=== PATIENT | female | born 1985 | race Caucasian/White ===

== ENCOUNTER → 2017-12-14 12:14 | Outpatient (CLI) | payer OTHER, MEDICAID, SELFPAY | PROVIDERS: Family Provider Family Medicine; Visit Provider Physician Assistant | DX: M54.5 Low back pain (principal) | CPT/HCPCS: 87086 ==

== ENCOUNTER 2019-01-07 14:55 | Emergency (ER) | payer BC, SELFPAY ==
[2019-01-07 15:13] VITALS: BP 103/63; PULSE 60; RESP 20; TEMP 37.3; O2SAT 99; BMI 24.7
--- NOTE | 2019-01-07 15:38 | ED.HA ---
HPI - Headache General Chief Complaint: Headache Stated Complaint: Bad headache, dizzy, couldn't walk, nausea Time Seen by Provider: 01/07/19 15:21 Source: patient Mode of arrival: ambulatory Limitations: no limitations History of Present Illness HPI Narrative: Patient is a 33-year-old female who presents from the walk-in clinic with headache dizziness. She says that she had quite a severe headache 2 nights ago actually caused her to vomit profusely somewhat show that she has subconjunctival hemorrhages in her eyes. She says the headache has slowly gotten better however the dizziness has persisted. His she says that she is actually dizzy often but seems to be little bit worse now. She denies chest pain or heart palpitations. No abdominal pain no weakness numbness tingling or changes in vision. Patient says her dizziness is definitely worse with movement. This been ongoing for about 1 month. Related Data Previous Rx's Medication Instructions Recorded nitrofurantoin monohyd/m-cryst 100 mg PO BID #10 cap 07/31/17 [Macrobid] phenazopyridine [Pyridium] 200 mg PO TID #6 tab 07/31/17 meclizine 25 mg PO TID PRN #10 tab 01/07/19 ondansetron 4 mg PO Q8H PRN #10 tab 01/07/19 Allergies Allergy/AdvReac Type Severity Reaction Status Date / Time No Known Drug Allergies Allergy Verified 01/07/19 15:12 Review of Systems Review of Systems ROS Unobtainable: All systems reviewed & are unremarkable except as noted in HPI and below Constitutional Denies chills, Denies fever(s), Denies lethargy and Denies weakness Cardiovascular Denies chest pain, Denies diaphoresis, Denies syncope, Reports lightheadedness, Denies dyspnea and Denies dyspnea on exertion Respiratory Denies cough, Denies dyspnea, Denies dyspnea on exertion and Denies wheezing Gastrointestinal Gastrointestinal: Reports as per HPI, Denies diarrhea, Reports nausea and Reports vomiting Genitourinary Denies hematuria, Denies flank pain, Denies urinary incontinence and Denies urinary urgency Musculoskeletal Denies back pain, Denies muscle weakness, Denies numbness and Denies tingling Integumentary/Breasts Denies pruritus, Denies erythema, Denies rash and Denies wounds Neurologic Denies syncope, Denies numbness, Denies tingling and Denies weakness Allergic/Immunologic Denies wheezing [facility] Medical History Dizzy (Acute) Family History (Updated 06/29/16 @ 00:00 by Conversion Provider) Father Hypertension Grandfather Cancer Sister Age: 33 Lyme disease Social History Smoking Status: Current some day smoker Family History Father Hypertension Grandfather Cancer Sister Age: 33 Lyme disease Social History Smoking Status: Current some day smoker Exam Initial Vital Signs Initial Vital Signs: Vital Signs Temperature 99.2 F 01/07/19 15:13 Pulse Rate 60 01/07/19 15:13 Respiratory Rate 20 01/07/19 15:13 Blood Pressure 103/63 01/07/19 15:13 Pulse Oximetry 99 01/07/19 15:13 GENERAL: Well-appearing, well-nourished and in no acute distress. HEENT: Head atraumatic,EOMI, pupils reactive, face symmetric, moist mucous membranes CARDIOVASCULAR: Regular rate and rhythm without murmurs, rubs or gallops. RESPIRATORY: Breath sounds equal bilaterally, no wheezes rales or rhonchi. ABDOMEN: Soft, nontender. Normoactive bowel sounds all 4 quadrants. No guarding or rebound. EXTREMITIES: Normal range of motion, no clubbing or edema. Neurovascularly intact NEUROLOGICAL: Alert and oriented x4.Normal gait and speech. Cranial nerves II through XII grossly intact. Alignment Mechanic strength equal bilaterally, lower extremity strength SKIN: Warm, dry, no laceration, no petechiae, no rashes or lesions. Scores NIH Stroke Scale Level of Conciousness: Alert, keenly responsive Ask month/age: Answers both questions correctly. Open/close eyes, close hand: Performs both tasks correctly Best gaze horizontal: Normal Visual bautista: No visual loss Facial palsy: Normal symetrical movement Left arm drift: No drift for full 10 sec Right arm drift: No drift for full 10 sec Left leg drift: No drift for full 10 sec Right leg drift: No drift for full 10 sec Limb ataxia: Absent Sensory on face/arms/legs: Normal, no sensory loss Best language: No aphasia, normal Dysarthria: Normal Extinction or inattention: No abnormality Total NIH Stroke scale score: 0 Course Orders Ordered: ED Orders 01/07/19 15:39 CT head/brain wo con Stat 01/07/19 15:45 EKG-12 Lead Stat 01/07/19 16:19 Basic Metabolic Panel Stat Complete Blood Count AUTO DIFF Stat Discontinued Medications Sodium Chloride (Normal Saline 0.9%) 1,000 mls @ 1,000 mls/hr IV CONT CRISTAL Last Infusion: 01/07/19 17:12 Dose: 0 mls/hr Admin: 01/07/19 16:09 Dose: 1,000 mls/hr Meclizine HCl (Antivert) 25 mg PO NOW ONE Stop: 01/07/19 15:39 Last Admin: 01/07/19 16:09 Dose: 25 mg Ondansetron HCl (Zofran) 4 mg IV NOW ONE Stop: 01/07/19 15:39 Last Admin: 01/07/19 16:09 Dose: 4 mg Vital Signs - 8 hr 01/07/19 15:13 01/07/19 16:53 Temperature 99.2 F Pulse Rate 60 48 L Respiratory Rate 20 23 Blood Pressure 103/63 Blood Pressure [Right Arm] 97/59 L Pulse Oximetry 99 100 MDM - Headache Lab Data Attestation: I reviewed the patient's lab results. Result diagrams: 01/07/19 16:19 01/07/19 16:19 Lab Results 01/07/19 01/07/19 Range/Units 16:19 16:19 WBC 6.6 (4.5-11.0) X10^3/uL RBC 4.13 (4.0-5.2) X10^6/uL Hgb 13.6 (12.0-16.0) g/dL Hct 39.1 (36-46) % MCV 94.6 (80-100) fL MCH 33.0 (26-34) PG MCHC 34.9 (30-36) % RDW 12.9 (11.6-14.8) % Plt Count 176 (150-400) X10^3/uL Neut % (Auto) 62.7 (50-75) % Lymph % (Auto) 26.7 (25-40) % Shackelford % (Auto) 8.0 (3-14) % Eos % (Auto) 1.8 L (2-4) % Baso % (Auto) 0.8 (0-2) % Neut # (Auto) 4100 (1653-0569) /uL Lymph # (Auto) 1800 (9144-0768) /uL [place]ord # (Auto) 500 (0-900) /uL Eos # (Auto) 100 (0-450) /uL Baso # (Auto) 100 (0-100) /uL Sodium 138 (137-145) mmol/L Potassium 5.1 (3.4-5.1) mmol/L Chloride 105 (98-107) mmol/L Carbon Dioxide 28 (22-32) mmol/L BUN 15 (7-17) mg/dL Creatinine 0.60 (0.52-1.04) mg/dL Estimated GFR > 60.0 (>60) mL/min BUN/Creatinine Ratio 25.0 H (6-22) Glucose 82 (70-100) mg/dL Calcium 8.9 (8.4-10.2) mg/dL Point of Care Testing Test Results Negative Urine Dip Bedside Urine Glucose Negative Bedside Urine Bilirubin - Negative Bedside Urine Ketone - Negative Urine Specific [place] 1.025 Bedside Urine Occult Blood +/- Bedside Urine pH 6.0 Bedside Urine Protein - Negative Bedside Urine Urobilinogen - Negative Bedside Urine Nitrite - Negative Bedside Urine Leukocytes - Negative Esterase Imaging Data CT scan - head: Radiologist's impression: PROCEDURE: CT HEAD/BRAIN WO CON INDICATIONS: sudden onset severe headache 2 days ago with vomiting TECHNIQUE: Noncontrast 4.5 mm thick angled axial sections acquired from the foramen magnum to the vertex, with coronal and sagittal reformats. For radiation dose reduction, the following was used: automated exposure control, adjustment of mA and/or kV according to patient size. COMPARISON: None. FINDINGS: Image quality: Diagnostic. CSF spaces: Basal cisterns are patent. No extra-axial fluid collections. Ventricles are normal in size and shape. Brain: No midline shift. No intracranial masses or hemorrhage. Cisneros-white matter interface is normal. Skull and face: Calvarium and visualized facial bones are intact, without suspicious lesions. Sinuses: Visualized sinuses and mastoids are clear. IMPRESSION: Unremarkable head CT. No acute intracranial hemorrhage. Dictated by: Magen Caruso M.D. on 01/07/2019 at 15:28 Approved by: Magen Caruso M.D. on 01/07/2019 at 15:29 ECG Data Attestation: I personally reviewed and interpreted this ECG as follows: Prior ECG tracings: not available for review Interpretation: Normal sinus rhythm rate [address] changes no T-wave inversions p.r. intervalRS 89 QTC 390 MDM Narrative Medical decision making narrative: Patient overall is feeling significantly better after meclizine. Head CT is negative she has no focal deficits. Dizziness is consistent with benign positional paroxysmal vertigo. Her headache has overall improved over last 2 days. No sign of subarachnoid hemorrhage or other bleeding on her head CT. At this time she feels ready and able to go home. Discharge Plan Departure Patient Disposition: Home Clinical Impression: Vertigo Headache Qualifiers: Headache type: unspecified Headache chronicity pattern: acute headache Intractability: not intractable Qualified Code(s): R51 - Headache Discharge Date/Time: 01/07/19 17:14 Interventions: ED Discharge Assessment Last Done: 01/07/19 17:13 Instructions: DI for Migraine, Benign Paroxysmal Positional Vertigo Activity Restrictions/Additional Instructions: *You have been diagnosed with vertigo and headache *What to do: Head CT is negative today blood work is reassuring. If you continue to have more frequent headaches as you did , it may benefit you to see a neurologist. *Continue to take medications as directed--> [facility] Zofran 4 mg every 8 hours if needed for nausea vomiting Meclizine 25 mg every 8 hours if needed for dizziness *Follow up with your primary care provider in 2-3 days *Return to ER if you should have persistent dizziness worsening headache persistent vomiting weakness numbness tingling or any new, worsening or concerning symptoms Prescriptions: New meclizine 25 mg tablet 25 mg PO TID PRN (Reason: dizziness) Qty: 10 RF: 0 ondansetron 4 mg tablet,disintegrating 4 mg PO Q8H PRN (Reason: nausea and vomiting) Qty: 10 RF: 0 No Action phenazopyridine [Pyridium] 200 MG tablet 200 mg PO TID Qty: 6 RF: 0 nitrofurantoin monohyd/m-cryst [Macrobid] 100 MG capsule 100 mg PO BID Qty: 10 RF: 0 Referrals: [facility] [Outside]
[2019-01-07] MEDS: MECLIZINE HCL 12.5 MG TABLET 25 MG PO (16:09)
[2019-01-07] MEDS: SODIUM CHLORIDE 0.9% 1,000 ML 1000 ML IV (16:09)
[2019-01-07] MEDS: ONDANSETRON 4 MG/2 ML INJ IV (16:09)
[2019-01-07 16:29] LABS: Add Manual Diff / Slide Review NO; Basophils Absolute Auto 100 /uL (0-100); Basophils Percent Auto 0.8 % (0-2); Eosinophils Absolute Auto 100 /uL (0-450); Eosinophils Percent Auto 1.8 % (2-4); Hematocrit 39.1 % (36-46); Hemoglobin 13.6 g/dL (12.0-16.0); Lymphocytes Absolute Auto 1800 /uL (1100-4500); Lymphocytes Percent Auto 26.7 % (25-40); Mean Corpuscular HGB Conc 34.9 % (30-36); Mean Corpuscular Volume 94.6 fL (80-100); Monocytes Absolute Auto 500 /uL (0-900); Neutrophils Absolute Auto 4100 /uL (1500-7000); Neutrophils Percent Auto 62.7 % (50-75); Platelet Count 176 X10^3/uL (150-400); Red Blood Cell Count 4.13 X10^6/uL (4.0-5.2); Red Cell Distribution Width 12.9 % (11.6-14.8); White Blood Cell Count 6.6 X10^3/uL (4.5-11.0)
[2019-01-07 16:41] LABS: Blood Urea Nitrogen 15 mg/dL (7-17); Calcium 8.9 mg/dL (8.4-10.2); Carbon Dioxide 28 mmol/L (22-32); Chloride 105 mmol/L (98-107); Estimated Glomerular Filt Rate > 60.0 mL/min (>60); Glucose 82 mg/dL (70-100); Potassium 5.1 mmol/L (3.4-5.1); Sodium 138 mmol/L (137-145)
[2019-01-07 16:47] LABS: HEMOLYSIS 209 (0-50)
[2019-01-07 16:53] VITALS: BP 97/59; PULSE 48; RESP 23; O2SAT 100
== END 2019-01-07 17:14 | disposition home or self-care (01) ==
PROVIDERS: Emergency Provider Emergency Medicine; Family Provider Family Medicine
DX: R42 Dizziness and giddiness (principal); R51 Headache
CPT/HCPCS: 36591; 70450; 80048; 81003; 81025; 85025; 93005; 96361; 96374; 99283; 99285; J2405

== ENCOUNTER 2020-01-03 08:25 | Emergency (ER) | payer OTHER, SELFPAY ==
[2020-01-03 08:39] VITALS: BP 136/92; PULSE 66; RESP 18; TEMP 37; O2SAT 99
--- NOTE | 2020-01-03 09:30 | ED_ITS ---
HPI - Anxiety General Chief Complaint: Anxiety Stated Complaint: Panic Attack x2 days Time Seen by Provider: 01/03/20 08:58 Source: patient Mode of arrival: Wheelchair History of Present Illness HPI narrative: Patient was dropped off by her here. Patient has been under lot of stress. Her 12-year-old daughter was seen here for suicide ideations. She had to drive her daughter to [facility] for inpatient placement last night. She dropped her off at 12:30 a.m. today. On her return back home here patient had anxiety attack panic attack then had a stop at a hotel to try to sleep. Patient states has history anxiety with panic attacks but this is by far the most stressful event in her life. had to come to her and pick her up and upper back here. In [place]. Patient unable sleep for the past few nights due to stress. Denies any hallucinations no SI or HI. Is not on any medications for anxiety. Denies does not want test. Has had hyperventilating and very tearful and emotional. Related Data Previous Rx's Medication Instructions Recorded nitrofurantoin monohyd/m-cryst 100 mg PO BID #10 cap 07/31/17 [Macrobid] phenazopyridine [Pyridium] 200 mg PO TID #6 tab 07/31/17 meclizine 25 mg PO TID PRN #10 tab 01/07/19 ondansetron 4 mg PO Q8H PRN #10 tab 01/07/19 hydroxyzine HCl 25 mg PO TID PRN #20 tab 01/03/20 Allergies Allergy/AdvReac Type Severity Reaction Status Date / Time No Known Drug Allergies Allergy Verified 01/07/19 15:12 Review of Systems Review of Systems Narrative: GENERAL: Denies chills, fatigue, malaise, fever, sweats. HEENT: Denies sinus pain, ear pain, sore throat, difficulty swallowing, dizziness. RESPIRATORY: Denies dyspnea, cough, wheezing, hemoptysis, sputum. CARDIOVASCULAR: Denies chest pain, palpitations, orthopnea, edema, GASTROINTESTINAL: Denies nausea, vomiting, abdominal pain, diarrhea, constipation, melena. : Denies dysuria, frequency, incontinence, hematuria, urinary retention. MUSCULOSKELETAL: denies weakness, joint pain, or bony pain SKIN: Denies rash, skin lesions, or other NEUROLOGIC: Denies weakness, headache, numbness, change in speech, confusion, seizures, incoordination. PSYCHIATRIC: Very anxious, no SI or HI, no auditory or visual hallucinations. ROS Unobtainable: All systems reviewed & are unremarkable except as noted in HPI and below Patient History Medical History Dizzy (Acute) Family History Father Hypertension Grandfather Cancer Sister Age: 34 Lyme disease Social History Smoking Status: Current some day smoker Smoking Status: Current some day smoker alcohol intake frequency: 0-2 drinks per day Substance Use Type: does not use Exam Narrative Exam Narrative: GENERAL: patient appears stated age. Well-nourished, well- developed patient, in no distress, not toxic HEAD: Atraumatic. Normocephalic. NECK: Trachea midline. Non tender CARDIOVASCULAR: Regular rate and rhythm without murmurs, gallops, or rubs. RESPIRATORY: Clear to auscultation. Breath sounds equal bilaterally. No wheezes, rales, or rhonchi. GASTROINTESTINAL: Abdomen soft, non-tender, nondistended. NEURO: AOx3. SKIN: No rash or erythema of visible areas PSYCH: Patient is tearful/anxious, not hyperventilating. is calm otherwise. Cooperative. No SI or HI. No hallucinations. Initial Vital Signs Initial Vital Signs: Vital Signs Temperature 98.6 F 01/03/20 08:39 Pulse Rate 66 01/03/20 08:39 Respiratory Rate 18 01/03/20 08:39 Blood Pressure 136/92 H 01/03/20 08:39 Pulse Oximetry 99 01/03/20 08:39 Course Orders Ordered: Discontinued Medications Alprazolam (Xanax) 0.5 mg PO NOW ONE Stop: 01/03/20 09:22 Last Admin: 01/03/20 10:05 Dose: Not Given Documented by: YUNOIR Alprazolam (Xanax) 0.25 mg PO NOW ONE Stop: 01/03/20 10:05 Last Admin: 01/03/20 10:07 Dose: 0.25 mg Documented by: YUNIOR Alprazolam (Xanax) 0.25 mg PO NOW ONE Stop: 01/03/20 10:11 Last Admin: 01/03/20 10:40 Dose: 0.25 mg Documented by: YUNIOR Ondansetron HCl (Zofran Odt) 4 mg SL NOW ONE Stop: 01/03/20 09:22 Last Admin: 01/03/20 09:51 Dose: 4 mg Documented by: YUNIOR Reevaluation(s) Reevaluation #1: Patient tolerating by mouth/drinking. No distress. Feeling better. Less anxious, patient is smiling now. She desires discharge home Time: 10:54 Vital Signs Vital signs: Vital Signs - 8 hr 01/03/20 10:57 Pulse Rate 70 Respiratory Rate 14 Blood Pressure 107/70 Pulse Oximetry 99 MDM - Anxiety Differential Diagnosis Differential diagnosis: Likely acute anxiety MDM Narrative Medical decision making narrative: No labs indicate this time. No EKG imaging indicated. Patient states this is more severe form of her anxiety due to recent stress of her family. Discharge Plan Departure Patient Disposition: Home Clinical Impression: Acute anxiety Discharge Date/Time: 01/03/20 11:09 Instructions: Insomnia (Alternative Therapy), Anxiety and Panic Attacks (Alternative Therapy), Treating Insomnia: A Look at Some Treatment Options, Yoga May Help Reduce Anxiety and Stress, Mindful Meditation May Reduce Symptoms and Complications of Insomnia Activity Restrictions/Additional Instructions: No driving today. See family doctor or call provided clinic list to obtain a family physician and for possible counseling/therapy for anxiety and stress in her life. Return if worse or if any questions or concerns. Prescriptions: New hydroxyzine HCl 25 mg tablet 25 mg PO TID PRN (Reason: anxiety) Qty: 20 RF: 0 No Action phenazopyridine [Pyridium] 200 MG tablet 200 mg PO TID Qty: 6 RF: 0 nitrofurantoin monohyd/m-cryst [Macrobid] 100 MG capsule 100 mg PO BID Qty: 10 RF: 0 meclizine 25 mg tablet 25 mg PO TID PRN (Reason: dizziness) Qty: 10 RF: 0 ondansetron 4 mg tablet,disintegrating 4 mg PO Q8H PRN (Reason: nausea and vomiting) Qty: 10 RF: 0
[2020-01-03] MEDS: ONDANSETRON 4 MG ODT SL (09:51)
[2020-01-03] MEDS: ALPRAZolam 0.25 MG TABLET PO ×2 (10:07→10:40)
[2020-01-03 10:57] VITALS: BP 107/70; PULSE 70; RESP 14; O2SAT 99
== END 2020-01-03 11:09 | disposition home or self-care (01) ==
PROVIDERS: Emergency Provider Emergency Medicine; Family Provider Family Medicine
DX: F41.9 Anxiety disorder, unspecified (principal)
CPT/HCPCS: 99283

== ENCOUNTER 2020-01-04 08:34 | Emergency (ER) | payer OTHER, SELFPAY ==
[2020-01-04] VITALS (7 sets, daily range): BP systolic 105–139; BP diastolic 60–83; PULSE 68–87; RESP 16; TEMP 37.1; O2SAT 96–100; BMI 22.9
--- NOTE | 2020-01-04 08:52 | ED_ITS ---
HPI - Pediatric SOB/Dyspnea General Chief Complaint: Anxiety Stated Complaint: anxiety Time Seen by Provider: 01/04/20 08:52 Source: patient Mode of arrival: Ambulatory Limitations: no limitations History of Present Illness HPI Narrative: The patient has a longstanding history of anxiety. In her youth she learn to do deep breathing exercises, other measures to alter the sensation. Her 12-year-old daughter was recently a patient in this ER, her daughter required psychiatric hospitalization. The patient chest spent 3 days in this ER with her daughter for evaluation and disposition. She then drove her daughter to [place], [place], 7 hours away for hospitalization. She describes that drive as the longest 7 hours of her life. She had to get a hotel half of the way back, she felt she could go no further. Her picked her up and brought her home. She was in this ER yesterday with anxiety. She was treated with Xanax in the ER then discharged on hydroxyzine. She returns crying, complaining of insomnia, and nausea. She has not vomited. She denies disability to eat to hydrate. The hydroxyzine did not work well for, she describes drowsiness yet the inability to sleep. She remains quite upset about her daughter. She has another child, and 8-year-old son who is well diet without issues at home. Her relationship with her is described as very good. She has no other current stressors. She has anxiety, depression, tearfulness, insomnia, appetite issues, and depression. She denies suicidal or homicidal ideation. She denies recent illness. She has had no fever, cough or dyspnea. Related Data Previous Rx's Medication Instructions Recorded nitrofurantoin monohyd/m-cryst 100 mg PO BID #10 cap 07/31/17 [Macrobid] phenazopyridine [Pyridium] 200 mg PO TID #6 tab 07/31/17 meclizine 25 mg PO TID PRN #10 tab 01/07/19 ondansetron 4 mg PO Q8H PRN #10 tab 01/07/19 hydroxyzine HCl 25 mg PO TID PRN #20 tab 01/03/20 lorazepam [Ativan] 0.5 mg PO Q6-8H PRN #14 tab 01/04/20 ondansetron 4 mg PO Q6-8H PRN #14 tab 01/04/20 sertraline [Zoloft] 50 mg PO Q24H #30 tab 01/04/20 Allergies Allergy/AdvReac Type Severity Reaction Status Date / Time No Known Drug Allergies Allergy Verified 01/07/19 15:12 Pediatric Review of Systems Limitations: All systems reviewed & are unremarkable except as noted in HPI and below Constitutional: Denies fever and chills Eyes: Denies change in vision ENT: Denies sore throat Cardiovascular: Denies chest pain, palpitations, syncope and dyspnea on exertion Respiratory: Denies cough and dyspnea Gastrointestinal: Reports abdominal pain and nausea; Denies vomiting and diarr hea Genitourinary: Denies dysuria Musculoskeletal: Denies back pain Integumentary: Denies rash and lesions Neurological: Denies headache and weakness Psychiatric: Reports change in energy level and other (See HPI.) Endocrine: Reports fatigue Allergic/Immunologic: Denies facial swelling Patient History Medical History (Updated 01/04/20 @ 15:24 by Mynor Perry MD) Anxiety (Acute) Dizzy (Acute) Surgical History (Updated 01/04/20 @ 11:06 by Mynor Perry MD) No history of previous surgery (Acute) Family History Father Hypertension Grandfather Cancer Sister Age: 34 Lyme disease Social History Smoking Status: Current some day smoker Smoking Status: Current some day smoker alcohol intake frequency: 0-2 drinks per day Substance Use Type: does not use Pediatric Exam Initial Vital Signs Initial Vital Signs: Vital Signs Temperature 98.7 F 01/04/20 08:54 Pulse Rate 87 01/04/20 08:54 Respiratory Rate 16 01/04/20 08:54 Blood Pressure 139/83 01/04/20 08:54 Pulse Oximetry 97 01/04/20 08:54 General Limitations: no limitations General appearance: other (She appears said, she is tearful.) Head Head exam: normocephalic and atraumatic ENT ENT exam: normal exam Neck Neck exam: Absent tenderness, lymphadenopathy and thyromegaly Chest Chest inspection: Present symmetric chest wall rise Respiratory Respiratory exam: Present normal lung sounds bilaterally Cardiovascular Cardiovascular exam: Present regular rate, normal rhythm and normal heart sounds Abdominal Exam Abdominal exam: Present soft and normal bowel sounds; Absent distention, tenderness, guarding and rebound Extremities Exam Extremities exam: Present normal inspection; Absent tenderness and pedal edema Back Exam Back exam: Absent CVA tenderness (R) Neurological Exam Neurological exam: Present alert and oriented X3; Absent motor sensory deficit Skin Skin exam: Present warm, dry and normal color; Absent rash Course Course Course Narrative: The patient was started on Ativan, as well as Zoloft. She has no primary care, or medical resources other than the ER at this time. Our ER social and political studies professor was consulted, he assisted in aligning resources for the patient. She is feeling much better after receiving the medications. She is referred to [facility] in [place]. Orders Ordered: ED Orders 01/04/20 10:57 Consult to ACADEMIC SERVICES COORDINATOR - Terminal Superintendent Stat 01/04/20 11:37 Urine Culture Stat Urine Microscopic Stat Discontinued Medications Sodium Chloride (Normal Saline 0.9%) 1,000 mls @ 1,000 mls/hr IV BOLUS ONE Stop: 01/04/20 10:58 Last Infusion: 01/04/20 11:15 Dose: 1,000 mls/hr Documented by: Admin: 01/04/20 10:10 Dose: 1,000 mls/hr Documented by: WICHO Lorazepam (Ativan) 0.5 mg PO NOW ONE Stop: 01/04/20 09:13 Last Admin: 01/04/20 09:20 Dose: 0.5 mg Documented by: WICHO Ondansetron HCl (Zofran Odt) 4 mg SL NOW ONE Stop: 01/04/20 09:13 Last Admin: 01/04/20 09:20 Dose: 4 mg Documented by: WICHO Ondansetron HCl (Zofran) 4 mg IV NOW ONE Stop: 01/04/20 10:00 Sertraline HCl (Zoloft) 50 mg PO NOW ONE Stop: 01/04/20 09:13 Last Admin: 01/04/20 09:44 Dose: 50 mg Documented by: WICHO Vital Signs Vital signs: Vital Signs - 8 hr 01/04/20 13:28 01/04/20 13:30 01/04/20 14:00 Pulse Rate 85 73 68 Blood Pressure 117/70 106/66 Pulse Oximetry 99 99 97 01/04/20 14:30 01/04/20 15:00 01/04/20 15:30 Pulse Rate 77 70 81 Blood Pressure 126/68 108/60 105/66 Pulse Oximetry 96 98 100 Medical Decision Making Lab Data Result diagrams: 01/04/20 09:58 01/04/20 09:58 Labs: Lab Results 01/04/20 01/04/20 01/04/20 Range/Units 09:58 09:58 11:37 WBC 7.4 (4.5-11.0) X10^3/uL RBC 4.62 (4.0-5.2) X10^6/uL Hgb 15.0 (12.0-16.0) g/dL Hct 43.0 (36-46) % MCV 93.1 (80-100) fL MCH 32.5 (26-34) PG MCHC 34.9 (30-36) % RDW 12.6 (11.6-14.8) % Plt Count 188 (150-400) X10^3/uL Neut % (Auto) 79.1 H (50-75) % Lymph % (Auto) 13.2 L (25-40) % Hart % (Auto) 6.8 (3-14) % Eos % (Auto) 0.3 L (2-4) % Baso % (Auto) 0.6 (0-2) % Neut # (Auto) 5800 (9610-7002) /uL Lymph # (Auto) 1000 L (0925-9649) /uL Hart # (Auto) 500 (0-900) /uL Eos # (Auto) 0 (0-450) /uL Baso # (Auto) 0 (0-100) /uL Sodium 137 (137-145) mmol/L Potassium 4.0 (3.4-5.1) mmol/L Chloride 105 (98-107) mmol/L Carbon Dioxide 18 L (22-32) mmol/L BUN 17 (7-17) mg/dL Creatinine 0.73 (0.52-1.04) mg/dL Estimated GFR > 60.0 (>60) mL/min BUN/Creatinine Ratio 23.3 H (6-22) Glucose 75 (70-100) mg/dL Calcium 9.4 (8.4-10.2) mg/dL Total Bilirubin 0.8 (0.2-1.3) mg/dL AST 19 (14-36) IU/L ALT 11 (<35) IU/L Alkaline Phosphatase 55 (38-126) U/L Total Protein 8.0 (6.3-8.2) g/dL Albumin 4.5 (3.5-5.0) g/dL Globulin 3.5 (1.7-4.1) g/dL Albumin/Globulin Ratio 1.3 (1.0-2.8) Lipase 51 (23-300) U/L Urine RBC None seen (0-5/HPF) Urine WBC 1-5/hpf (0-5/HPF) Ur Squamous Epith Cells 1-5 /hpf (0-5/HPF) Urine Bacteria Moderate (10-30) H (None) Urine Mucus 2+ H (Negative) Ur Culture Indicated? Specimen cultured Point of Care Testing Test Results Negative Urine Dip Bedside Urine Glucose Negative Bedside Urine Bilirubin + 1 Bedside Urine Ketone +++ 80 Urine Specific Ferney 1.030 Bedside Urine Occult Blood - Negative Bedside Urine pH 6.0 Bedside Urine Protein + 30 Bedside Urine Urobilinogen +/- 1mg Bedside Urine Nitrite - Negative Bedside Urine Leukocytes - Negative Esterase Point of care testing: Point of Care Testing Test Results Negative Urine Dip Bedside Urine Glucose Negative Bedside Urine Bilirubin + 1 Bedside Urine Ketone +++ 80 Urine Specific Ferney 1.030 Bedside Urine Occult Blood - Negative Bedside Urine pH 6.0 Bedside Urine Protein + 30 Bedside Urine Urobilinogen +/- 1mg Bedside Urine Nitrite - Negative Bedside Urine Leukocytes - Negative Esterase Discharge Plan Departure Patient Disposition: Home Clinical Impression: Depression with anxiety Discharge Date/Time: 01/04/20 15:47 Instructions: Anxiety Disorders Activity Restrictions/Additional Instructions: Zoloft 1 tablet daily, this is the regular medication for anxiety and depression. Ativan 1 tablet every 6 hours as needed for anxiety breakthrough. Do not take this medication if you do not needed. Zofran every 4 hours as needed for nausea. Be careful with the medications, do not confuse them. Call for follow-up with the [facility] in [place], [place] . If he needs additional help here, contact [facility] Emergency Social Work office: . Return to the ER as needed. Prescriptions: New sertraline [Zoloft] 50 mg tablet 50 mg PO Q24H Qty: 30 RF: 0 lorazepam [Ativan] 0.5 mg tablet 0.5 mg PO Q6-8H PRN (Reason: anxiety) Qty: 14 RF: 0 ondansetron 4 mg tablet,disintegrating 4 mg PO Q6-8H PRN (Reason: nausea and vomiting) Qty: 14 RF: 0 No Action phenazopyridine [Pyridium] 200 MG tablet 200 mg PO TID Qty: 6 RF: 0 nitrofurantoin monohyd/m-cryst [Macrobid] 100 MG capsule 100 mg PO BID Qty: 10 RF: 0 meclizine 25 mg tablet 25 mg PO TID PRN (Reason: dizziness) Qty: 10 RF: 0 ondansetron 4 mg tablet,disintegrating 4 mg PO Q8H PRN (Reason: nausea and vomiting) Qty: 10 RF: 0 hydroxyzine HCl 25 mg tablet 25 mg PO TID PRN (Reason: anxiety) Qty: 20 RF: 0
[2020-01-04] MEDS: LORazepam 0.5 MG TABLET PO (09:20)
[2020-01-04] MEDS: ONDANSETRON 4 MG ODT SL (09:20)
--- NOTE | 2020-01-04 09:24 | PC.NURSE ---
patient under significant stress surrounding her daughters mental health. Has had some anxiety in past but can't seem to shake off her anxiety and panic attacks. Started on hydralizine yesterday but not helping her anxiety and just makes her dizzy
[2020-01-04] MEDS: SERTRALINE 50 MG TABLET PO (09:44)
[2020-01-04] MEDS: SODIUM CHLORIDE 0.9% 1,000 ML 1000 ML IV (10:10)
[2020-01-04 10:15] LABS: Add Manual Diff / Slide Review NO; Basophils Absolute Auto 0 /uL (0-100); Basophils Percent Auto 0.6 % (0-2); Eosinophils Absolute Auto 0 /uL (0-450); Eosinophils Percent Auto 0.3 % (2-4); Lymphocytes Absolute Auto 1000 /uL (1100-4500); Lymphocytes Percent Auto 13.2 % (25-40); Mean Corpuscular HGB Conc 34.9 % (30-36); Mean Corpuscular Hemoglobin 32.5 PG (26-34); Mean Corpuscular Volume 93.1 fL (80-100); Monocytes Absolute Auto 500 /uL (0-900); Monocytes Percent Auto 6.8 % (3-14); Neutrophils Absolute Auto 5800 /uL (1500-7000); Neutrophils Percent Auto 79.1 % (50-75); Platelet Count 188 X10^3/uL (150-400); Red Blood Cell Count 4.62 X10^6/uL (4.0-5.2); Red Cell Distribution Width 12.6 % (11.6-14.8); White Blood Cell Count 7.4 X10^3/uL (4.5-11.0)
[2020-01-04 10:28] LABS: Alanine Aminotransferase 11 IU/L (<35); Albumin 4.5 g/dL (3.5-5.0); Albumin Globulin Ratio 1.3 (1.0-2.8); Alkaline Phosphatase 55 U/L (38-126); Aspartate Aminotransferase 19 IU/L (14-36); BUN Creatinine Ratio 23.3 (6-22); Bilirubin Total 0.8 mg/dL (0.2-1.3); Blood Urea Nitrogen 17 mg/dL (7-17); Calcium 9.4 mg/dL (8.4-10.2); Carbon Dioxide 18 mmol/L (22-32); Chloride 105 mmol/L (98-107); Estimated Glomerular Filt Rate > 60.0 mL/min (>60); Globulin 3.5 g/dL (1.7-4.1); Glucose 75 mg/dL (70-100); HEMOLYSIS < 15 (0-50); Lipase 51 U/L (23-300); Sodium 137 mmol/L (137-145)
[2020-01-04 11:55] LABS: RBC Urine None Seen (0-5/HPF)
[2020-01-04 12:01] LABS: Bacteria Urine Moderate (10-30); Mucus Urine 2+ (Negative); Squamous Epithelial Cell Urine 1-5 /HPF (0-5/HPF); WBC Urine 1-5/HPF (0-5/HPF)
[2020-01-04 12:02] LABS: Culture Indicated Urine Specimen Cultured
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
== END 2020-01-04 15:47 | disposition home or self-care (01) ==
PROVIDERS: Emergency Provider Emergency Medicine; Family Provider Family Medicine
DX: F41.8 Other specified anxiety disorders (principal)
CPT/HCPCS: 36415; 80053; 81003; 81015; 81025; 83690; 85025; 87086; 96360; 99284

== ENCOUNTER → 2021-04-07 08:14 | Outpatient (CLI) | payer OTHER, MEDICAID, SELFPAY ==
[2021-04-07 08:50] LABS: Add Manual Diff / Slide Review NO; Basophils Absolute Auto 0 /uL (0-100); Basophils Percent Auto 0.5 % (0-2); Eosinophils Absolute Auto 100 /uL (0-450); Eosinophils Percent Auto 2.1 % (2-4); Hematocrit 41.7 % (36-46); Hemoglobin 14.4 g/dL (12.0-16.0); Lymphocytes Absolute Auto 1600 /uL (1100-4500); Mean Corpuscular HGB Conc 34.6 % (30-36); Mean Corpuscular Hemoglobin 31.9 PG (26-34); Mean Corpuscular Volume 92.3 fL (80-100); Monocytes Absolute Auto 500 /uL (0-900); Neutrophils Absolute Auto 3800 /uL (1500-7000); Neutrophils Percent Auto 63.4 % (50-75); Platelet Count 193 X10^3/uL (150-400); Red Blood Cell Count 4.52 X10^6/uL (4.0-5.2); Red Cell Distribution Width 12.6 % (11.6-14.8)
[2021-04-07 09:11] LABS: Alanine Aminotransferase 25 IU/L (<35); Albumin Globulin Ratio 1.3 (1.0-2.8); Alkaline Phosphatase 49 U/L (38-126); Aspartate Aminotransferase 19 IU/L (14-36); BUN Creatinine Ratio 15.6 (6-22); Bilirubin Total 0.4 mg/dL (0.2-1.3); Blood Urea Nitrogen 10 mg/dL (7-17); Calcium 9.1 mg/dL (8.4-10.2); Carbon Dioxide 23 mmol/L (22-32); Chloride 109 mmol/L (98-107); Cholesterol 192 mg/dL (140-199); Estimated Glomerular Filt Rate > 60.0 mL/min (>60); Globulin 3.1 g/dL (1.7-4.1); Glucose 106 mg/dL (70-100); HDL Cholesterol 40 mg/dL (40-60); HEMOLYSIS < 15 (0-50); LDL Cholesterol Calculated 140 mg/dL (<100); Potassium 4.2 mmol/L (3.4-5.1); Sodium 138 mmol/L (137-145); Total Protein 7.1 g/dL (6.3-8.2); Triglycerides 60 mg/dL (35-150)
[2021-04-07 09:17] LABS: Hemoglobin A1C% w Est Avg Glu 4.9 % (4.0-6.0)
[2021-04-07 09:25] LABS: Free T3, Triiodothyronine Free 3.61 pg/mL (2.77-5.27); Free T4, Direct Thyroxine 0.75 ng/dL (0.78-2.19)
[2021-04-07 09:39] LABS: Thyroid Stimulating Hormone 1.13 uIU/mL (0.47-4.68)
[2021-04-08 18:37] LABS: Anti Thyroglobulin Antibody <1.0 IU/mL (0.0-0.9); Thyroid Peroxidase Antibodies 16 IU/mL (0-34)
== END ==
PROVIDERS: Family Provider Family Medicine; PCP Family Medicine; Referring Provider Family Medicine; Visit Provider Family Medicine
DX: R61 Generalized hyperhidrosis (principal); R63.5 Abnormal weight gain; Z13.21 Encounter for screening for nutritional disorder
CPT/HCPCS: 36415; 80053; 80061; 82306; 83036; 84439; 84443; 84481; 85025; 86376; 86800

== ENCOUNTER 2021-08-01 22:38 | Emergency (ER) | payer OTHER, MEDICAID, SELFPAY ==
[2021-08-01 22:48] VITALS: BP 116/77; PULSE 77; RESP 15; TEMP 36.9; O2SAT 97; BMI 26.6
--- NOTE | 2021-08-01 22:50 | DI.RAD.S_ITS ---
PROCEDURE: XR FOOT LT MIN 3V INDICATIONS: injury swelling and bruising on foot around big toe TECHNIQUE: 3 views of the foot were acquired. COMPARISON: None. FINDINGS: Bones: Oblique fracture of 1st proximal phalange which extends into the MTP joint. No suspicious bony lesions. Small plantar calcaneal bone spur. Soft tissues: No tibiotalar joint effusion. Achilles tendon appears normal. IMPRESSION: 1st proximal phalange fracture. Dictated by: Ana Carrillo MD, PhD on 08/01/2021 at 23:22 Approved by: Ana Carrillo MD, PhD on 08/01/2021 at 23:23
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
--- NOTE | 2021-08-01 23:47 | PC.NURSE ---
bruising and swelling noted on the right great toe and below the toe
== END 2021-08-01 23:48 | disposition home or self-care (01) ==
PROVIDERS: Emergency Provider Emergency Medicine; Family Provider Family Medicine; PCP Family Medicine
DX: S92.415A Nondisplaced fracture of proximal phalanx of left great toe, initial encounter for closed fracture (principal); F17.200 Nicotine dependence, unspecified, uncomplicated; X58.XXXA Exposure to other specified factors, initial encounter; Y93.02 Activity, running
CPT/HCPCS: 73630; 99281; 99283

== ENCOUNTER → 2022-06-22 09:12 | Outpatient (CLI) | payer OTHER, MEDICAID, SELFPAY ==
[2022-06-22 10:53] LABS: Hemoglobin 13.8 g/dL (12.0-16.0); Mean Corpuscular HGB Conc 34.6 % (30-36); Mean Corpuscular Hemoglobin 32.3 PG (26-34); Mean Corpuscular Volume 93.3 fL (80-100); Platelet Count 187 X10^3/uL (150-400); Red Blood Cell Count 4.28 X10^6/uL (4.0-5.2); Red Cell Distribution Width 12.2 % (11.6-14.8); White Blood Cell Count 4.9 X10^3/uL (4.5-11.0)
[2022-06-22 11:42] LABS: Alanine Aminotransferase 14 IU/L (<35); Albumin 4.1 g/dL (3.5-5.0); Albumin Globulin Ratio 1.3 (1.0-2.8); Alkaline Phosphatase 53 U/L (38-126); Aspartate Aminotransferase 17 IU/L (14-36); BUN Creatinine Ratio 13.3 (6-22); Bilirubin Total 0.4 mg/dL (0.2-1.3); Blood Urea Nitrogen 10 mg/dL (7-17); Calcium 8.7 mg/dL (8.4-10.2); Carbon Dioxide 23 mmol/L (22-32); Chloride 106 mmol/L (98-107); Cholesterol 168 mg/dL (140-199); Estimated Glomerular Filt Rate > 60 mL/min (>60); Globulin 3.1 g/dL (1.7-4.1); Glucose 91 mg/dL (70-100); HDL Cholesterol 46 mg/dL (40-60); HEMOLYSIS < 15 (0-50); LDL Cholesterol Calculated 109 mg/dL (<100); Potassium 4.2 mmol/L (3.4-5.1); Sodium 139 mmol/L (137-145); Total Protein 7.2 g/dL (6.3-8.2); Triglycerides 63 mg/dL (35-150)
[2022-06-22 12:10] LABS: TSH w/ Reflex to FT4 0.95 uIU/mL (0.47-4.68)
== END ==
PROVIDERS: Family Provider Family Medicine; PCP Family Medicine; Referring Provider Nurse Practitioner Family; Visit Provider Nurse Practitioner Family
DX: Z00.00 Encounter for general adult medical examination without abnormal findings (principal); F41.9 Anxiety disorder, unspecified; Z13.6 Encounter for screening for cardiovascular disorders
CPT/HCPCS: 36415; 80053; 80061; 84443; 85027

== ENCOUNTER → 2022-07-22 08:40 | Outpatient (CLI) | payer OTHER, MEDICAID, SELFPAY ==
--- NOTE | 2022-07-22 08:41 | DI.MG.S_ITS ---
BILATERAL DIGITAL DIAGNOSTIC MAMMOGRAM 3D/2D: 07/22/2022 CLINICAL: Baseline exam. Nipple discharge. No prior exams were available for comparison. Both breasts are heterogeneously dense, which may obscure small masses (category c / 51-75% glandular tissue). No significant masses, calcifications, or other findings are seen in either breast. IMPRESSION: BENIGN There is no mammographic evidence of malignancy. A 3 year screening mammogram is recommended. Patient describes white bilateral nipple discharge which is a benign description. Patient is advised to monitor for significant change. Clinical follow-up as needed. Based on the Tyrer Cuzick model (a risk assessment model) the patient's lifetime risk is 10.6% and her 10 year risk is 1.0%. According to the ACR, ACS, and NCCN guidelines, an annual breast MRI exam along with mammogram is recommended if the patient's lifetime risk is 20% or greater. This exam was interpreted at Station ID: [id number]. NOTE: For mammograms, a report in lay terms will be sent to the patient. Approximately 15% of breast malignancies will not be visualized mammographically. In the management of a palpable breast mass, a negative mammogram must not discourage biopsy of a clinically suspicious lesion. Electronically Signed By: Mao Scott M.D. [facility] [place]/:07/22/2022 09:28:39 letter sent: Normal Exam ACR BI-RADS Category 2: Benign Finding(s) 3342F
== END ==
PROVIDERS: Family Provider Family Medicine; PCP Family Medicine; Referring Provider Nurse Practitioner Family; Visit Provider Nurse Practitioner Family
DX: N64.52 Nipple discharge (principal)
CPT/HCPCS: 77066; G0279

== ENCOUNTER 2022-10-09 09:30 | Outpatient (RCR) | payer OTHER, MEDICAID, SELFPAY ==
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
--- NOTE | 2022-08-24 18:20 | PT.OPPOC ---
Physical, Occupational & Speech Therapy At [facility] Current Diagnoses Other chronic pain (08/24/22) Pain in right knee (08/24/22) Visit Care Team Role Provider Type Peewee Blecher DO Attending Provider Physician Family Provider Primary Care Provider Referring Provider Specialty: Family Practice Address: [address] [place] [address], [facility] Email: Plan Of Care PT-OP-T Assessment and Plan Start: 08/20/22 19:19 Freq: Status: Active Protocol: Document 08/24/22 13:50 LRN (Rec: 08/24/22 14:42 LRN [id number]) Physical Therapy Assessment Rehab Potential Rehabilitation Potential Good Evaluation Complexity Number of Personal Factors/Comorbidities 1-2 Number of Body Systems Impaired 1-2 Clinical Presentation at Evaluation Evolving Impairments Impairments Activity Tolerance,Balance, Functional Activities,Gait, Pain,Posture,ROM,Soft Tissue Mobility,Strength,Transfers Goals Three Impairment Decreased function Impairment LEFS score 44 (40-59% impaired , score 32-47) Short Term Goal (STG) Improve function with improved LEFS score of 48-62 (20-39% impaired). STG Duration 09/23/22 Immigration Manager Goal (LTG) Improve function with improved LEFS score of 63-79 (1-19% impaired) LTG Duration 10/23/22 Two Impairment Decreased strength due to R knee pain rated 3-7/10. Impairment Intermittent Sciatic pain rated 3-5/10. R knee MMT strength testing demonstrated no onset of knee pain. Short Term Goal (STG) Pt educated in proper sit/ stand posture. STG Duration 09/04/22 Immigration Manager Goal (LTG) Strengthen the R knee and generally LE to stop pain post activity of climbing ladders & decrease pain getting off floor. LTG Duration 10/23/22 One Impairment Pt lacks appriopriate self care HEP. Short Term Goal (STG) Pt will be educated in use of modalities for pain management /inflammation. STG Duration 08/28/22 Immigration Manager Goal (LTG) Pt will be independent in a self care HEP of R LE strengthening and hip flexibility ex's. LTG Duration 10/23/22 Assessment Summary Assessment Pt is a 37 year old female who presents with injury to R knee, possible strain of LCL. She is negative for ACL/PCL, MCL and meniscus injury, although she does have some pain with twisting of the knee , but negative with Varus test . She has notable swelling in the lateral inferior patella fat pad region but no patellar chondromalicia noted. The pt will benefit from skilled physical therapy for postural training, pain management, R LE strengthening and ROM, LB treatment for onset of R sciatic pain when present, gait and balance training. Physical Therapy Plan Frequency and Duration Frequency of Treatment 2x/Week Plan of Care Start Date 08/24/22 Plan of Care End Date 10/23/22 Therapeutic Interventions Therapeutic Interventions Balance Training,Gait Training ,Home Exercise Program,Manual Therapy,Patient/Caregiver Education,Self-Care/Home Management,Soft Tissue Mobilization,Taping, Therapeutic Activities, Therapeutic Exercises Modalities Cold Pack/Ice Massage,Electric Stimulation,Hot Packs, Ultrasound Next Visit Focus/Plan Next Note Type Treatment Note Next Visit Plan HEP: hip, knee (end range ext weak) & ankle strengthening with pt's home TBand. R ankle and hip flexibility ex ( DF right, PF left) after hip ROM and stair ambulation assessment. Assess Peroneal nerve, and Sciatic nerve in supine. Manual: MWM for stairs - knee pain reduction. Educate pt in use of modalities for pain management (RICE), and posture. Aerobic ex, gait & balance training. Modalities for inflammation/ pain: Ultrasound, ?ice EStim. Plan of Care Dates Plan of Care Start Date 08/24/22 Plan of Care End Date 10/23/22 Electronically Signed by: Ade Mullins, PT 08/24/22 9168 If you are in agreement with this Plan of Care, please return a signed and dated copy. I have reviewed this Plan of Care and certify that the skilled therapy services above are required to meet the patient?s needs. Physician Signature Date Printed Name and Credentials Clinical Instructor Signature Printed Name and Credentials
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
--- NOTE | 2022-08-24 18:25 | PT.OPPOC ---
Physical, Occupational & Speech Therapy At [facility] Current Diagnoses Other chronic pain (08/24/22) Pain in right knee (08/24/22) Lumbago with sciatica, right side (08/24/22) Visit Care Team Role Provider Type Peewee Belcher DO Attending Provider Physician Family Provider Primary Care Provider Referring Provider Specialty: Family Practice Address: [address] [place] [address], [facility] Email: Plan Of Care PT-OP-T Assessment and Plan Start: 08/20/22 19:19 Freq: Status: Active Protocol: Document 08/24/22 13:50 LRN (Rec: 08/24/22 14:42 LRN [id number]) Physical Therapy Assessment Rehab Potential Rehabilitation Potential Good Evaluation Complexity Number of Personal Factors/Comorbidities 1-2 Number of Body Systems Impaired 1-2 Clinical Presentation at Evaluation Evolving Impairments Impairments Activity Tolerance,Balance, Functional Activities,Gait, Pain,Posture,ROM,Soft Tissue Mobility,Strength,Transfers Goals Three Impairment Decreased function Impairment LEFS score 44 (40-59% impaired , score 32-47) Short Term Goal (STG) Improve function with improved LEFS score of 48-62 (20-39% impaired). STG Duration 09/23/22 Senior Living Goal (LTG) Improve function with improved LEFS score of 63-79 (1-19% impaired) LTG Duration 10/23/22 Two Impairment Decreased strength due to R knee pain rated 3-7/10. Impairment Intermittent Sciatic pain rated 3-5/10. R knee MMT strength testing demonstrated no onset of knee pain. Short Term Goal (STG) Pt educated in proper sit/ stand posture. STG Duration 09/04/22 Senior Living Goal (LTG) Strengthen the R knee and generally LE to stop pain post activity of climbing ladders & decrease pain getting off floor. LTG Duration 10/23/22 One Impairment Pt lacks appriopriate self care HEP. Short Term Goal (STG) Pt will be educated in use of modalities for pain management /inflammation. STG Duration 08/28/22 Senior Living Goal (LTG) Pt will be independent in a self care HEP of R LE strengthening and hip flexibility ex's. LTG Duration 10/23/22 Assessment Summary Assessment Pt is a 37 year old female who presents with injury to R knee, possible strain of LCL. She is negative for ACL/PCL, MCL and meniscus injury, although she does have some pain with twisting of the knee , but negative with Varus test . She has notable swelling in the lateral inferior patella fat pad region but no patellar chondromalicia noted. The pt will benefit from skilled physical therapy for postural training, pain management, R LE strengthening and ROM, LB treatment for onset of R sciatic pain when present, gait and balance training. Physical Therapy Plan Frequency and Duration Frequency of Treatment 2x/Week Plan of Care Start Date 08/24/22 Plan of Care End Date 10/23/22 Therapeutic Interventions Therapeutic Interventions Balance Training,Gait Training ,Home Exercise Program,Manual Therapy,Patient/Caregiver Education,Self-Care/Home Management,Soft Tissue Mobilization,Taping, Therapeutic Activities, Therapeutic Exercises Modalities Cold Pack/Ice Massage,Electric Stimulation,Hot Packs, Ultrasound Next Visit Focus/Plan Next Note Type Treatment Note Next Visit Plan HEP: hip, knee (end range ext weak) & ankle strengthening with pt's home TBand. R ankle and hip flexibility ex ( DF right, PF left) after hip ROM and stair ambulation assessment. Assess Peroneal nerve, and Sciatic nerve in supine. Manual: MWM for stairs - knee pain reduction. Educate pt in use of modalities for pain management (RICE), and posture. Aerobic ex, gait & balance training. Modalities for inflammation/ pain: Ultrasound, ?ice EStim. Plan of Care Dates Plan of Care Start Date 08/24/22 Plan of Care End Date 10/23/22 Electronically Signed by: Ade Mullins, PT 08/24/22 [id number] If you are in agreement with this Plan of Care, please return a signed and dated copy. I have reviewed this Plan of Care and certify that the skilled therapy services above are required to meet the patient?s needs. Physician Signature Date Printed Name and Credentials Clinical Instructor Signature Printed Name and Credentials
--- NOTE | 2022-08-31 16:09 | PT.OTN ---
Current Diagnoses Other chronic pain (08/31/22) Pain in right knee (08/31/22) Lumbago with sciatica, right side (08/31/22) Physical Therapy Treatment Note PT-OP-A Visit Information Start: 08/20/22 19:19 Freq: Status: Active Protocol: Document 08/31/22 13:01 LRN (Rec: 08/31/22 13:47 LRN [id number]) Out-Patient Physical Therapy Visit Information Visit Information Visit Type Treatment Note Visit Start Time 13:01 Visit Stop Time 13:41 Total Visit Minutes 40 Visit Number 1 Evaluation Information Evaluation Date 08/24/22 Precautions Precautions Pt reported history of R sciatic pain, R ankle fracture as a child, R knee pain after doing Reverse Mermaid move in yoga 4 yrs ago. PT-OP-B Current Condition Start: 08/20/22 19:19 Freq: Status: Active Protocol: Document 08/24/22 13:50 LRN (Rec: 08/24/22 14:42 LRN [id number]) Current Condition History of Current Condition Onset Date 4 yrs. 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 History of Current Condition Intermittent R knee pain. Past 4 yrs has been reinjuring it, Has been babying it. Climbing ladder makes it swell until she can't bend it. When the swelling goes down she can bend it again. Most recent onset a month ago climbed a ladder to get something off a shelf, felt a twinge and then swelling. Sometimes just standing up causes the pain. She had to stop exercising, so has gained weight. 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 Less pain today, so not limping. Sciatic nerve pain in the R LE side of leg to top of foot. Prior Treatments and Tests Cortisone injection 2 yrs ago (by Dr. Belcher) that eliminated the pain for 2 yrs. Massage therapy for R sciatic nerve pain. Developmental History Developmental History Hurt R knee during yoga, stretching (side sitting with R leg behind and pulled R foot up to side of trunk), felt knee pain that lasted a long time (4-5 months), then kept hurting it with swelling 3-4 weeks. Now has light injuries that the swelling lasts for 1 week. Sciatic pain started at the same time. After sitting for a long time gets R LE sciatic pain. Treatment Goals Patient/Caregiver Goals Pt goals: Strengthen the R knee to stop pain after activity (climbing ladders). 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 PT-OP-C Subjective Start: 08/20/22 19:19 Freq: Status: Active Protocol: Document 08/31/22 13:01 LRN (Rec: 08/31/22 13:47 LRN [id number]) OP-PT Subjective Patient Comments Patient Comments A little stiff today. Has been using more ice and naturally protecting the R knee, so isn't worse. States her R knee is popping more w /o pain. Pt feels something moving in (side to side) in anterolateral patellar inferior fat pad region, stating this is the area initially it hurts. PT-OP-G Mobility & Gait Start: 08/20/22 19:19 Freq: Status: Active Protocol: Document 08/24/22 13:50 LRN (Rec: 08/24/22 14:42 LRN [id number]) OP Gait Assessment Gait Gait Assistance Required: Independent Comments Gait Comments Pt notes the R knee is not hurting as much today because she has been resting it, so not noticing a limp. PT-OP-H Neuro Start: 08/20/22 19:19 Freq: Status: Active Protocol: Document 08/24/22 13:50 LRN (Rec: 08/24/22 14:42 LRN [id number]) Sensation Evaluation Gross Sensation Gross Sensation WNL Deep Tendon Reflex & Clonus Assessment Deep Tendon Reflex Bilateral Achilles Deep Tendon Reflex 2+ Normal Bilateral Patellar Deep Tendon Reflex 1+ Diminished PT-OP-J Posture/Palpation/Skin Start: 08/20/22 19:19 Freq: Status: Active Protocol: Document 08/24/22 13:50 LRN (Rec: 08/24/22 14:42 LRN [id number]) Posture Evaluation Position Standing Head/C-Spine Posture Forward Head T-Spine Posture Flattened L-Spine Posture Increased Lordosis Knee Posture (L) Genu Valgus,(R) Genu Valgus Ankle/Foot Posture (L) Calcaneal Inversion Foot Arch (L) Medium Arch,(R) Medium Arch Palpation Assessment Location R knee Palpation Location Lateral joint line tenderness Palpation Findings Tenderness PT-OP-K Range of Motion Start: 08/20/22 19:19 Freq: Status: Active Protocol: Document 08/24/22 13:50 LRN (Rec: 08/24/22 14:42 LRN [id number]) Knee Goniometric Range of Motion Knee Right Knee ROM WFL No Patient Position Supine Flexion Active (degrees) 137 Extension Active (degrees) 2 Left Knee ROM WFL Yes Patient Position Supine Flexion Active (degrees) 137 Extension Active (degrees) 0 Ankle and Foot Goniometric Range of Motion Ankle and Foot Right Active Testing Position Supine Dorsiflexion with Knee Flexed 2 Plantarflexion 62 Left Active Testing Position Supine Dorsiflexion with Knee Extended 8 Plantarflexion 52 PT-OP-L Special Tests Start: 08/20/22 19:19 Freq: Status: Active Protocol: Document 08/24/22 13:50 LRN (Rec: 08/24/22 14:42 LRN [id number]) Special Tests Knee Special Tests Varus- 25 Degrees Test Results - right Valgus- 25 Degrees Test Results - right Patellar Grind Test Test Results - right Manny Test Test Results - right Apley's Compression Test Results - right Posterior Draw Test Results - right Anterior Draw Test Results - right Neural Special Tests- Lower Body Sciatic Nerve Tension Test Results - bilaterally. Comments Slump Test in sitting. PT-OP-M Strength Start: 08/20/22 19:19 Freq: Status: Active Protocol: Document 08/24/22 13:50 LRN (Rec: 08/24/22 14:42 LRN [id number]) Hip Strength Hip Manual Muscle Testing Right Comments Generally 5/5 Left Comments Generally 5/5 Knee Strength Knee Manual Muscle Testing Left Flexion (S2) 5 Normal Extension (L3) 5 Normal Right Flexion (S2) 5 Normal Extension (L3) 5 Normal Comments Medial and Lateral hamstrings are 5/5. Ankle/Foot Strength Ankle and Foot Manual Muscle Testing Right Comments All muscle groups 5/5 Left Comments All muscle groups 5/5 Toe Strength Toe Manual Muscle Testing Left Great Toe Extension 5 Normal Right Great Toe Flexion 5 Normal PT-OP-Q Treatments Start: 08/20/22 19:19 Freq: Status: Active Protocol: Document 08/31/22 13:01 LRN (Rec: 08/31/22 13:47 LRN [id number]) Cardio Equipment Bicycle (Upright) Duration (Minutes) 6 Resistance 1 Seat Position 8 Other At end of treatment. Therapeutic Exercises Sitting Exercises Ankle DF Sitting Exercise Name Ankle DF strengthening Side right Equipment Used LGT green TBAND Reps/Minutes 15x 2 Comments Extra time for positional training & max tolerated reps Ankle IV Sitting Exercise Name Ankle IV strengthening Side right Equipment Used LGT green TBAND Reps/Minutes 15x 2 Comments Extra time for positional training & max tolerated reps Ankle EV Sitting Exercise Name Ankle EV strengthening Side right Equipment Used LGT green TBAND Reps/Minutes 15x 2 Comments Extra time for positional training & max tolerated reps Standing Exercises Step ups Standing Exercise Name Step ups: Front, Side: forward (leading w/RLE) Reps/Minutes 15x each Shallow Knee Bends Standing Exercise Name Shallow Knee Bends Side bilateral Reps/Minutes 15x Ankle PF Standing Exercise Name Ankle PF strengthening Side right Equipment Used LGT green TBAND Reps/Minutes 15x 2 Comments Extra time for positional training & max tolerated reps Self-Care/Home Management Treatment Education Patient Education Home Exercise Program,Pain Management Other Education Educated and discussed Proper standing posture and RICE technique for pain/ inflammation self care management. Activities Self-Care/Home Management Activities Issued & reviewed HEP: TBand ankle strengthening, Standing ankle PF & CKC knee strengthening of shallow squats, and step ups (front, side, lateral). Issued & reviewed handouts for Proper standing posture and RICE technique for pain/ inflammation self care management. PT-OP-T Assessment and Plan Start: 08/20/22 19:19 Freq: Status: Active Protocol: Document 08/31/22 13:01 [facility] (Rec: 08/31/22 13:47 [facility] [id number]) Physical Therapy Assessment Goals Three Impairment Decreased function Impairment LEFS score 44 (40-59% impaired , score 32-47) Short Term Goal (STG) Improve function with improved LEFS score of 48-62 (20-39% impaired). STG Duration 09/23/22 [facility] Goal (LTG) Improve function with improved LEFS score of 63-79 (1-19% impaired) LTG Duration 10/23/22 Two Impairment Decreased strength due to R knee pain rated 3-7/10. Impairment Intermittent Sciatic pain rated 3-5/10. R knee MMT strength testing demonstrated no onset of knee pain. Short Term Goal (STG) Pt educated in proper sit/ stand posture. 08/31/22: Educated pt in proper standing posture. STG Duration 09/04/22 progressed 08/31/22 Therapist Physical Goal (LTG) Strengthen the R knee and generally LE to stop pain post activity of climbing ladders & decrease pain getting off floor. LTG Duration 10/23/22 One Impairment Pt lacks appriopriate self care HEP. Short Term Goal (STG) Pt will be educated in use of modalities for pain management /inflammation. 08/31/22: Pt educated in use of ice (RICE) for pain management/inflammation. 08/31/22: Pt educated in RICE technique for pain/ inflammation management at home. STG Duration 08/28/22 (08/31/22: MET GOAL) [facility] Goal (LTG) Pt will be independent in a self care HEP of R LE strengthening and hip flexibility ex's. 08/31/22: HEP: TBand ankle strengthening, Standing ankle PF & CKC knee strengthening of shallow squats, and step ups (front, side, lateral). LTG Duration 10/23/22 progressed 08/31/22 Progress Towards Goals Progress Comments Progressed STG #2. Goal #1: STG MET, LTG progressed Assessment Summary Assessment Pt w/R knee pain, possible LCL strain, neg for ACL/PCL/MCL and meniscus injury, although pain with twisting. Good tolerance with no pain with ex 's. Physical Therapy Plan Frequency and Duration Frequency of Treatment 2x/Week Plan of Care Start Date 08/24/22 Plan of Care End Date 10/23/22 Next Visit Focus/Plan Next Note Type Treatment Note Next Visit Plan Educate pt in sitting posture. R ankle and hip flexibility ex (DF right, PF left) after assessment of hip ROM and stair ambulation. Assess Peroneal nerve, and Sciatic nerve in supine. Manual: MWM for stairs - knee pain reduction. Aerobic ex, gait & balance training. Modalities for inflammation/ pain: Ultrasound, ?ice EStim.
--- NOTE | 2022-09-03 15:57 | PT.OTN ---
Current Diagnoses Other chronic pain (09/03/22) Pain in right knee (09/03/22) Lumbago with sciatica, right side (09/03/22) Physical Therapy Treatment Note PT-OP-A Visit Information Start: 08/20/22 19:19 Freq: Status: Active Protocol: Document 09/03/22 15:18 LRN (Rec: 09/03/22 15:55 LRN [id number]) Out-Patient Physical Therapy Visit Information Visit Information Visit Type Treatment Note Visit Start Time 15:18 Visit Stop Time 15:48 Total Visit Minutes 30 Visit Number 3 Evaluation Information Evaluation Date 08/24/22 Precautions Precautions Pt reported history of R sciatic pain, R ankle fracture as a child, R knee pain after doing Reverse Mermaid move in yoga 4 yrs ago. PT-OP-B Current Condition Start: 08/20/22 19:19 Freq: Status: Active Protocol: Document 08/24/22 13:50 LRN (Rec: 08/24/22 14:42 LRN [id number]) Current Condition History of Current Condition Onset Date 4 yrs. 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 History of Current Condition Intermittent R knee pain. Past 4 yrs has been reinjuring it, Has been babying it. Climbing ladder makes it swell until she can't bend it. When the swelling goes down she can bend it again. Most recent onset a month ago climbed a ladder to get something off a shelf, felt a twinge and then swelling. Sometimes just standing up causes the pain. She had to stop exercising, so has gained weight. 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 Less pain today, so not limping. Sciatic nerve pain in the R LE side of leg to top of foot. Prior Treatments and Tests Cortisone injection 2 yrs ago (by Dr. Belcher) that eliminated the pain for 2 yrs. Massage therapy for R sciatic nerve pain. Developmental History Developmental History Hurt R knee during yoga, stretching (side sitting with R leg behind and pulled R foot up to side of trunk), felt knee pain that lasted a long time (4-5 months), then kept hurting it with swelling 3-4 weeks. Now has light injuries that the swelling lasts for 1 week. Sciatic pain started at the same time. After sitting for a long time gets R LE sciatic pain. Treatment Goals Patient/Caregiver Goals Pt goals: Strengthen the R knee to stop pain after activity (climbing ladders). 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 PT-OP-C Subjective Start: 08/20/22 19:19 Freq: Status: Active Protocol: Document 09/03/22 15:18 LRN (Rec: 09/03/22 15:55 LRN [id number]) OP-PT Subjective Patient Comments Patient Comments Needs to leave early, at 3:50 to greens picker daughter. HAsn't had instances in the R knee. PT-OP-G Mobility & Gait Start: 08/20/22 19:19 Freq: Status: Active Protocol: Document 08/24/22 13:50 LRN (Rec: 08/24/22 14:42 LRN [id number]) OP Gait Assessment Gait Gait Assistance Required: Independent Comments Gait Comments Pt notes the R knee is not hurting as much today because she has been resting it, so not noticing a limp. PT-OP-H Neuro Start: 08/20/22 19:19 Freq: Status: Active Protocol: Document 08/24/22 13:50 LRN (Rec: 08/24/22 14:42 LRN [id number]) Sensation Evaluation Gross Sensation Gross Sensation WNL Deep Tendon Reflex & Clonus Assessment Deep Tendon Reflex Bilateral Achilles Deep Tendon Reflex 2+ Normal Bilateral Patellar Deep Tendon Reflex 1+ Diminished PT-OP-J Posture/Palpation/Skin Start: 08/20/22 19:19 Freq: Status: Active Protocol: Document 08/24/22 13:50 LRN (Rec: 08/24/22 14:42 LRN [id number]) Posture Evaluation Position Standing Head/C-Spine Posture Forward Head T-Spine Posture Flattened L-Spine Posture Increased Lordosis Knee Posture (L) Genu Valgus,(R) Genu Valgus Ankle/Foot Posture (L) Calcaneal Inversion Foot Arch (L) Medium Arch,(R) Medium Arch Palpation Assessment Location R knee Palpation Location Lateral joint line tenderness Palpation Findings Tenderness PT-OP-K Range of Motion Start: 08/20/22 19:19 Freq: Status: Active Protocol: Document 08/24/22 13:50 LRN (Rec: 08/24/22 14:42 LRN [id number]) Knee Goniometric Range of Motion Knee Right Knee ROM WFL No Patient Position Supine Flexion Active (degrees) 137 Extension Active (degrees) 2 Left Knee ROM WFL Yes Patient Position Supine Flexion Active (degrees) 137 Extension Active (degrees) 0 Ankle and Foot Goniometric Range of Motion Ankle and Foot Right Active Testing Position Supine Dorsiflexion with Knee Flexed 2 Plantarflexion 62 Left Active Testing Position Supine Dorsiflexion with Knee Extended 8 Plantarflexion 52 PT-OP-L Special Tests Start: 08/20/22 19:19 Freq: Status: Active Protocol: Document 08/24/22 13:50 LRN (Rec: 08/24/22 14:42 LRN [id number]) Special Tests Knee Special Tests Varus- 25 Degrees Test Results - right Valgus- 25 Degrees Test Results - right Patellar Grind Test Test Results - right Manny Test Test Results - right Apley's Compression Test Results - right Posterior Draw Test Results - right Anterior Draw Test Results - right Neural Special Tests- Lower Body Sciatic Nerve Tension Test Results - bilaterally. Comments Slump Test in sitting. PT-OP-M Strength Start: 08/20/22 19:19 Freq: Status: Active Protocol: Document 08/24/22 13:50 LRN (Rec: 08/24/22 14:42 LRN [id number]) Hip Strength Hip Manual Muscle Testing Right Comments Generally 5/5 Left Comments Generally 5/5 Knee Strength Knee Manual Muscle Testing Left Flexion (S2) 5 Normal Extension (L3) 5 Normal Right Flexion (S2) 5 Normal Extension (L3) 5 Normal Comments Medial and Lateral hamstrings are 5/5. Ankle/Foot Strength Ankle and Foot Manual Muscle Testing Right Comments All muscle groups 5/5 Left Comments All muscle groups 5/5 Toe Strength Toe Manual Muscle Testing Left Great Toe Extension 5 Normal Right Great Toe Flexion 5 Normal PT-OP-Q Treatments Start: 08/20/22 19:19 Freq: Status: Active Protocol: Document 09/03/22 15:18 LRN (Rec: 09/03/22 15:55 LRN [id number]) Cardio Equipment Bicycle (Upright) Duration (Minutes) 7 Resistance 1 > 4 after 3 minutes. Seat Position 9 Therapeutic Exercises Sitting Exercises Ankle PF stretch Sitting Exercise Name Ankle PF stretch Side left Reps/Minutes 60 SH x 1 Comments Cuing for positioning Ankle DF Sitting Exercise Name Ankle DF strengthening Side right Equipment Used LGT green TBAND Reps/Minutes 15x 2 Comments Extra time for positional training & max tolerated reps Ankle IV Sitting Exercise Name Ankle IV strengthening Side right Equipment Used LGT green TBAND Reps/Minutes 15x 2 Comments Extra time for positional training & max tolerated reps Ankle EV Sitting Exercise Name Ankle EV strengthening Side right Equipment Used LGT green TBAND Reps/Minutes 15x 2 Comments Extra time for positional training & max tolerated reps Standing Exercises Gastroc & Soleus stretch Standing Exercise Name Gastroc & Soleus stretch Side right Reps/Minutes 60 SH x 1 each Comments Cuing for positioning Step ups Standing Exercise Name Step ups: Front, Side: forward (leading w/RLE) Reps/Minutes 15x 2 each Shallow Knee Bends Standing Exercise Name Shallow Knee Bends Side bilateral Reps/Minutes 15x 2 Ankle PF Standing Exercise Name Ankle PF strengthening Side right Reps/Minutes 15x 2 Self-Care/Home Management Treatment Education Patient Education Posture Other Education Educated and discussed proper sitting posture with handouts issued. Activities Self-Care/Home Management Activities Issued & reviewed HEP: Gastroc/Soleus stretch and sitting ankle PF stretch. PT-OP-T Assessment and Plan Start: 08/20/22 19:19 Freq: Status: Active Protocol: Document 09/03/22 15:18 LRN (Rec: 09/03/22 15:55 LRN [id number]) Physical Therapy Assessment Goals Three Impairment Decreased function Impairment LEFS score 44 (40-59% impaired , score 32-47) Short Term Goal (STG) Improve function with improved LEFS score of 48-62 (20-39% impaired). STG Duration 09/23/22 Media Reporter Goal (LTG) Improve function with improved LEFS score of 63-79 (1-19% impaired) LTG Duration 10/23/22 Two Impairment Decreased strength due to R knee pain rated 3-7/10. Impairment Intermittent Sciatic pain rated 3-5/10. R knee MMT strength testing demonstrated no onset of knee pain. Short Term Goal (STG) Pt educated in proper sit/ stand posture. 08/31/22: Educated pt in proper standing posture. 09/03/22: Educated pt in proper sitting posture. STG Duration 09/04/22 (09/03/22: MET GOAL) [facility] Goal (LTG) Strengthen the R knee and generally LE to stop pain post activity of climbing ladders & decrease pain getting off floor. LTG Duration 10/23/22 One Impairment Pt lacks appriopriate self care HEP. Short Term Goal (STG) Pt will be educated in use of modalities for pain management /inflammation. 08/31/22: Pt educated in use of ice (RICE) for pain management/inflammation. 08/31/22: Pt educated in RICE technique for pain/ inflammation management at home. STG Duration 08/28/22 (08/31/22: MET GOAL) Media Reporter Goal (LTG) Pt will be independent in a self care HEP of R LE strengthening and hip flexibility ex's. 08/31/22: HEP: TBand ankle strengthening, Standing ankle PF & CKC knee strengthening of shallow squats, and step ups (front, side, lateral). 09/03/22: Ankle flexibility ex 's issued. LTG Duration 10/23/22 progressed 09/03/22 Progress Towards Goals Progress Comments STG #2 MET. Progressed HEP. Assessment Summary Assessment Pt very receptive to proper sitting posture education. R knee pain c/o with Soleus stretch on L side when pt attempted. Recommended if pt wants to stretch on L side, to reduce WBing on the RLE. Physical Therapy Plan Frequency and Duration Frequency of Treatment 2x/Week Plan of Care Start Date 08/24/22 Plan of Care End Date 10/23/22 Next Visit Focus/Plan Next Note Type Treatment Note Next Visit Plan Review R ankle flexibility ex (DF right, PF left). After assessment of hip ROM and stair ambulation issue flexibility ex's as needed. Assess Peroneal nerve, and Sciatic nerve in supine. Manual: MWM for stairs - knee pain reduction if needed. Aerobic ex, gait & balance training. Modalities for inflammation/ pain: Ultrasound, ?ice EStim.
--- NOTE | 2022-09-10 16:45 | PT.OTN ---
Current Diagnoses Other chronic pain (09/10/22) Pain in right knee (09/10/22) Lumbago with sciatica, right side (09/10/22) Physical Therapy Treatment Note PT-OP-A Visit Information Start: 08/20/22 19:19 Freq: Status: Active Protocol: Document 09/10/22 13:49 LRN (Rec: 09/10/22 14:32 LRN [id number]) Out-Patient Physical Therapy Visit Information Visit Information Visit Type Treatment Note Visit Start Time 13:49 Visit Stop Time 14:28 Total Visit Minutes 39 Visit Number 4 Evaluation Information Evaluation Date 08/24/22 Precautions Precautions Pt reported history of R sciatic pain, R ankle fracture as a child, R knee pain after doing Reverse Mermaid move in yoga 4 yrs ago. PT-OP-B Current Condition Start: 08/20/22 19:19 Freq: Status: Active Protocol: Document 08/24/22 13:50 LRN (Rec: 08/24/22 14:42 LRN [id number]) Current Condition History of Current Condition Onset Date 4 yrs. 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 History of Current Condition Intermittent R knee pain. Past 4 yrs has been reinjuring it, Has been babying it. Climbing ladder makes it swell until she can't bend it. When the swelling goes down she can bend it again. Most recent onset a month ago climbed a ladder to get something off a shelf, felt a twinge and then swelling. Sometimes just standing up causes the pain. She had to stop exercising, so has gained weight. 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 Less pain today, so not limping. Sciatic nerve pain in the R LE side of leg to top of foot. Prior Treatments and Tests Cortisone injection 2 yrs ago (by Dr. Belcher) that eliminated the pain for 2 yrs. Massage therapy for R sciatic nerve pain. Developmental History Developmental History Hurt R knee during yoga, stretching (side sitting with R leg behind and pulled R foot up to side of trunk), felt knee pain that lasted a long time (4-5 months), then kept hurting it with swelling 3-4 weeks. Now has light injuries that the swelling lasts for 1 week. Sciatic pain started at the same time. After sitting for a long time gets R LE sciatic pain. Treatment Goals Patient/Caregiver Goals Pt goals: Strengthen the R knee to stop pain after activity (climbing ladders). 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 PT-OP-C Subjective Start: 08/20/22 19:19 Freq: Status: Active Protocol: Document 09/10/22 13:49 LRN (Rec: 09/10/22 14:32 LRN [id number]) OP-PT Subjective Patient Comments Patient Comments No complaints. R knee pain is rated 1/10. Hasn't been driving long distances, so hasn't had sciatic pain. PT-OP-G Mobility & Gait Start: 08/20/22 19:19 Freq: Status: Active Protocol: Document 08/24/22 13:50 LRN (Rec: 08/24/22 14:42 LRN [id number]) OP Gait Assessment Gait Gait Assistance Required: Independent Comments Gait Comments Pt notes the R knee is not hurting as much today because she has been resting it, so not noticing a limp. PT-OP-H Neuro Start: 08/20/22 19:19 Freq: Status: Active Protocol: Document 08/24/22 13:50 LRN (Rec: 08/24/22 14:42 LRN [id number]) Sensation Evaluation Gross Sensation Gross Sensation WNL Deep Tendon Reflex & Clonus Assessment Deep Tendon Reflex Bilateral Achilles Deep Tendon Reflex 2+ Normal Bilateral Patellar Deep Tendon Reflex 1+ Diminished PT-OP-J Posture/Palpation/Skin Start: 08/20/22 19:19 Freq: Status: Active Protocol: Document 08/24/22 13:50 LRN (Rec: 08/24/22 14:42 LRN [id number]) Posture Evaluation Position Standing Head/C-Spine Posture Forward Head T-Spine Posture Flattened L-Spine Posture Increased Lordosis Knee Posture (L) Genu Valgus,(R) Genu Valgus Ankle/Foot Posture (L) Calcaneal Inversion Foot Arch (L) Medium Arch,(R) Medium Arch Palpation Assessment Location R knee Palpation Location Lateral joint line tenderness Palpation Findings Tenderness PT-OP-K Range of Motion Start: 08/20/22 19:19 Freq: Status: Active Protocol: Document 09/10/22 13:49 LRN (Rec: 09/10/22 14:32 LRN [id number]) Hip Goniometric Range of Motion Hip Right Passive Testing Position Supine Internal Rotation 35 External Rotation 50 Left Passive Testing Position Supine Internal Rotation 30 External Rotation 40 PT-OP-L Special Tests Start: 08/20/22 19:19 Freq: Status: Active Protocol: Document 08/24/22 13:50 LRN (Rec: 08/24/22 14:42 LRN [id number]) Special Tests Knee Special Tests Varus- 25 Degrees Test Results - right Valgus- 25 Degrees Test Results - right Patellar Grind Test Test Results - right Manny Test Test Results - right Apley's Compression Test Results - right Posterior Draw Test Results - right Anterior Draw Test Results - right Neural Special Tests- Lower Body Sciatic Nerve Tension Test Results - bilaterally. Comments Slump Test in sitting. PT-OP-M Strength Start: 08/20/22 19:19 Freq: Status: Active Protocol: Document 08/24/22 13:50 LRN (Rec: 08/24/22 14:42 LRN [id number]) Hip Strength Hip Manual Muscle Testing Right Comments Generally 5/5 Left Comments Generally 5/5 Knee Strength Knee Manual Muscle Testing Left Flexion (S2) 5 Normal Extension (L3) 5 Normal Right Flexion (S2) 5 Normal Extension (L3) 5 Normal Comments Medial and Lateral hamstrings are 5/5. Ankle/Foot Strength Ankle and Foot Manual Muscle Testing Right Comments All muscle groups 5/5 Left Comments All muscle groups 5/5 Toe Strength Toe Manual Muscle Testing Left Great Toe Extension 5 Normal Right Great Toe Flexion 5 Normal PT-OP-Q Treatments Start: 08/20/22 19:19 Freq: Status: Active Protocol: Document 09/10/22 13:49 LRN (Rec: 09/10/22 14:32 LRN [id number]) Cardio Equipment Bicycle (Upright) Duration (Minutes) 8 Resistance 5 (keeping rpm ~70) Seat Position 9 Other Extra time needed to get on/ off bicycle. Therapeutic Exercises Supine Exercises L lateral stretch Supine Exercise Name L lateral stretch Side left Comments Extra time to determine max tolerated stretch L Piriformis stretch Supine Exercise Name L knee over ankle or pulling L knee to opp shldr Side left Comments Extra time to determine max tolerated stretch R Fig 4 stretch Side right Reps/Minutes 2' Comments Extra time to determine max tolerated stretch Sitting Exercises Sciatic n glide Sitting Exercise Name Slump Slider>Tensioner>Slider Side right Comments Kick head off>kick head>kick head off Ankle PF stretch Sitting Exercise Name Ankle PF stretch Side left Reps/Minutes 60 SH x 1 Comments Cuing for positioning Ankle DF Sitting Exercise Name Ankle DF strengthening Side right Equipment Used LGT green TBAND Reps/Minutes 30x Comments Extra time for positional training & max tolerated reps Ankle IV Sitting Exercise Name Ankle IV strengthening Side right Equipment Used LGT green TBAND Reps/Minutes 30x Comments Extra time for positional training & max tolerated reps Ankle EV Sitting Exercise Name Ankle EV strengthening Side right Equipment Used LGT green TBAND Reps/Minutes 30x Comments Extra time for positional training & max tolerated reps Standing Exercises Gastroc & Soleus stretch Standing Exercise Name Gastroc & Soleus stretch Side bilateral Reps/Minutes 60 SH x 1 L, 2x R Comments Cuing for positioning, extra time for review Self-Care/Home Management Treatment Education Patient Education Home Exercise Program Activities Self-Care/Home Management Activities Issued & reviewed HEP: R LE: Slump Slider. L hip IR- piriformis & lateral hip stretch and R hip ER stretch. PT-OP-T Assessment and Plan Start: 08/20/22 19:19 Freq: Status: Active Protocol: Document 09/10/22 13:49 LRN (Rec: 09/10/22 14:32 LRN [id number]) Physical Therapy Assessment Goals Three Impairment Decreased function Impairment LEFS score 44 (40-59% impaired , score 32-47) Short Term Goal (STG) Improve function with improved LEFS score of 48-62 (20-39% impaired). STG Duration 09/23/22 Maintenance Controller Goal (LTG) Improve function with improved LEFS score of 63-79 (1-19% impaired) LTG Duration 10/23/22 Two Impairment Decreased strength due to R knee pain rated 3-7/10. Impairment Intermittent Sciatic pain rated 3-5/10. R knee MMT strength testing demonstrated no onset of knee pain. Short Term Goal (STG) Pt educated in proper sit/ stand posture. 08/31/22: Educated pt in proper standing posture. 09/03/22: Educated pt in proper sitting posture. STG Duration 09/04/22 (09/03/22: MET GOAL) Maintenance Controller Goal (LTG) Strengthen the R knee and generally LE to stop pain post activity of climbing ladders & decrease pain getting off floor. LTG Duration 10/23/22 One Impairment Pt lacks appriopriate self care HEP. Short Term Goal (STG) Pt will be educated in use of modalities for pain management /inflammation. 08/31/22: Pt educated in use of ice (RICE) for pain management/inflammation. 08/31/22: Pt educated in RICE technique for pain/ inflammation management at home. STG Duration 08/28/22 (08/31/22: MET GOAL) Fpc Goal (LTG) Pt will be independent in a self care HEP of R LE strengthening and hip flexibility ex's. 08/31/22: HEP: TBand ankle strengthening, Standing ankle PF & CKC knee strengthening of shallow squats, and step ups (front, side, lateral). 09/03/22: Ankle flexibility ex 's issued. 09/10/22: reviewed HEP: R LE: Slump Slider. L hip IR- piriformis & lateral hip stretch and R hip ER stretch. LTG Duration 10/23/22 progressed 09/10/22 Progress Towards Goals Progress Comments Progressed HEP. Assessment Summary Assessment R knee probable LCL strain. She was negative for ACL/PCL/ MCL and meniscus tests. Pt had increased neural tension with sciatic tensioner glide. Good tolerance with hip/ hamstring-LE neural exercises w/o complaints of R knee pain. Physical Therapy Plan Frequency and Duration Frequency of Treatment 2x/Week Plan of Care Start Date 08/24/22 Plan of Care End Date 10/23/22 Next Visit Focus/Plan Next Note Type Treatment Note Next Visit Plan Next: Assess LEFS. After assessment of stair ambulation issue flexibility ex's and manual as needed. Manual: MWM for stairs - knee pain reduction if needed. Assess Peroneal nerve, and Sciatic nerve in supine. Review sciatic n slider and assess for need of femoral n glides. Aerobic ex, gait & balance training. Modalities for inflammation/ pain: Ultrasound, ?ice EStim.
--- NOTE | 2022-09-17 14:11 | PT.OTN ---
Current Diagnoses Other chronic pain (09/17/22) Pain in right knee (09/17/22) Lumbago with sciatica, right side (09/17/22) Physical Therapy Treatment Note PT-OP-A Visit Information Start: 08/20/22 19:19 Freq: Status: Active Protocol: Document 09/17/22 13:19 LRN (Rec: 09/17/22 14:09 LRN [id number]) Out-Patient Physical Therapy Visit Information Visit Information Visit Type Treatment Note Visit Start Time 13:19 Visit Stop Time 13:57 Total Visit Minutes 38 Visit Number 5 Evaluation Information Evaluation Date 08/24/22 Precautions Precautions Pt reported history of R sciatic pain, R ankle fracture as a child, R knee pain after doing Reverse Mermaid move in yoga 4 yrs ago. PT-OP-B Current Condition Start: 08/20/22 19:19 Freq: Status: Active Protocol: Document 08/24/22 13:50 LRN (Rec: 08/24/22 14:42 LRN [id number]) Current Condition History of Current Condition Onset Date 4 yrs. 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 History of Current Condition Intermittent R knee pain. Past 4 yrs has been reinjuring it, Has been babying it. Climbing ladder makes it swell until she can't bend it. When the swelling goes down she can bend it again. Most recent onset a month ago climbed a ladder to get something off a shelf, felt a twinge and then swelling. Sometimes just standing up causes the pain. She had to stop exercising, so has gained weight. 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 Less pain today, so not limping. Sciatic nerve pain in the R LE side of leg to top of foot. Prior Treatments and Tests Cortisone injection 2 yrs ago (by Dr. Belcher) that eliminated the pain for 2 yrs. Massage therapy for R sciatic nerve pain. Developmental History Developmental History Hurt R knee during yoga, stretching (side sitting with R leg behind and pulled R foot up to side of trunk), felt knee pain that lasted a long time (4-5 months), then kept hurting it with swelling 3-4 weeks. Now has light injuries that the swelling lasts for 1 week. Sciatic pain started at the same time. After sitting for a long time gets R LE sciatic pain. Treatment Goals Patient/Caregiver Goals Pt goals: Strengthen the R knee to stop pain after activity (climbing ladders). 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 PT-OP-C Subjective Start: 08/20/22 19:19 Freq: Status: Active Protocol: Document 09/17/22 13:19 LRN (Rec: 09/17/22 14:09 LRN [id number]) OP-PT Subjective Patient Comments Patient Comments States has not had any R knee pain. States it has been cracking a lot with split second pain occasionally. PT-OP-G Mobility & Gait Start: 08/20/22 19:19 Freq: Status: Active Protocol: Document 08/24/22 13:50 LRN (Rec: 08/24/22 14:42 LRN [id number]) OP Gait Assessment Gait Gait Assistance Required: Independent Comments Gait Comments Pt notes the R knee is not hurting as much today because she has been resting it, so not noticing a limp. PT-OP-H Neuro Start: 08/20/22 19:19 Freq: Status: Active Protocol: Document 08/24/22 13:50 LRN (Rec: 08/24/22 14:42 LRN [id number]) Sensation Evaluation Gross Sensation Gross Sensation WNL Deep Tendon Reflex & Clonus Assessment Deep Tendon Reflex Bilateral Achilles Deep Tendon Reflex 2+ Normal Bilateral Patellar Deep Tendon Reflex 1+ Diminished PT-OP-J Posture/Palpation/Skin Start: 08/20/22 19:19 Freq: Status: Active Protocol: Document 08/24/22 13:50 LRN (Rec: 08/24/22 14:42 LRN [id number]) Posture Evaluation Position Standing Head/C-Spine Posture Forward Head T-Spine Posture Flattened L-Spine Posture Increased Lordosis Knee Posture (L) Genu Valgus,(R) Genu Valgus Ankle/Foot Posture (L) Calcaneal Inversion Foot Arch (L) Medium Arch,(R) Medium Arch Palpation Assessment Location R knee Palpation Location Lateral joint line tenderness Palpation Findings Tenderness PT-OP-K Range of Motion Start: 08/20/22 19:19 Freq: Status: Active Protocol: Document 09/10/22 13:49 LRN (Rec: 09/10/22 14:32 LRN [id number]) Hip Goniometric Range of Motion Hip Right Passive Testing Position Supine Internal Rotation 35 External Rotation 50 Left Passive Testing Position Supine Internal Rotation 30 External Rotation 40 PT-OP-L Special Tests Start: 08/20/22 19:19 Freq: Status: Active Protocol: Document 08/24/22 13:50 LRN (Rec: 08/24/22 14:42 LRN [id number]) Special Tests Knee Special Tests Varus- 25 Degrees Test Results - right Valgus- 25 Degrees Test Results - right Patellar Grind Test Test Results - right Manny Test Test Results - right Apley's Compression Test Results - right Posterior Draw Test Results - right Anterior Draw Test Results - right Neural Special Tests- Lower Body Sciatic Nerve Tension Test Results - bilaterally. Comments Slump Test in sitting. PT-OP-M Strength Start: 08/20/22 19:19 Freq: Status: Active Protocol: Document 08/24/22 13:50 LRN (Rec: 08/24/22 14:42 LRN [id number]) Hip Strength Hip Manual Muscle Testing Right Comments Generally 5/5 Left Comments Generally 5/5 Knee Strength Knee Manual Muscle Testing Left Flexion (S2) 5 Normal Extension (L3) 5 Normal Right Flexion (S2) 5 Normal Extension (L3) 5 Normal Comments Medial and Lateral hamstrings are 5/5. Ankle/Foot Strength Ankle and Foot Manual Muscle Testing Right Comments All muscle groups 5/5 Left Comments All muscle groups 5/5 Toe Strength Toe Manual Muscle Testing Left Great Toe Extension 5 Normal Right Great Toe Flexion 5 Normal PT-OP-Q Treatments Start: 08/20/22 19:19 Freq: Status: Active Protocol: Document 09/17/22 13:19 LRN (Rec: 09/17/22 14:09 LRN [id number]) Cardio Equipment Bicycle (Upright) Duration (Minutes) 9 Resistance 5 (keeping rpm ~70) Seat Position 9 Other Extra time needed to get on/ off bicycle. Therapeutic Exercises Supine Exercises Peronal n stretch Supine Exercise Name Man assist Peronal n stretch: SLR>hip AD/IR>Ankle PF/IV Side bilateral Reps/Minutes Stretch R x 2, L x 1 Comments Extra time to determine max tolerated stretch L lateral stretch Supine Exercise Name L > R Lateral Hip Stretch Side left Reps/Minutes 15 SH, 2x L, 1x R L Piriformis stretch Supine Exercise Name L > R knee over ankle or pulling knee to opp shldr Side bilateral Reps/Minutes 15 SH , 2x L, 1x R Comments Extra time to determine max tolerated stretch R Fig 4 stretch Supine Exercise Name R fig 4 stretch Side right Reps/Minutes 1' Comments R side stiffer than L Sitting Exercises Sciatic n glide Sitting Exercise Name Slump Slider>Tensioner>Slider Side right Reps/Minutes 10x each Comments Kick head off>kick head>kick head off Standing Exercises Stair step ups Standing Exercise Name Stair step ups Side bilateral Reps/Minutes 4' PT-OP-T Assessment and Plan Start: 08/20/22 19:19 Freq: Status: Active Protocol: Document 09/17/22 13:19 LRN (Rec: 09/17/22 14:09 LRN [id number]) Physical Therapy Assessment Goals Three Impairment Decreased function Impairment LEFS score 44 (40-59% impaired , score 32-47) Short Term Goal (STG) Improve function with improved LEFS score of 48-62 (20-39% impaired). 09/17/22: LEFS score 60. STG Duration 09/23/22 (09/17/22: MET GOAL) Assisted Goal (LTG) Improve function with improved LEFS score of 63-79 (1-19% impaired) LTG Duration 10/23/22 Two Impairment Decreased strength due to R knee pain rated 3-7/10. Impairment Intermittent Sciatic pain rated 3-5/10. R knee MMT strength testing demonstrated no onset of knee pain. Short Term Goal (STG) Pt educated in proper sit/ stand posture. 08/31/22: Educated pt in proper standing posture. 09/03/22: Educated pt in proper sitting posture. STG Duration 09/04/22 (09/03/22: MET GOAL) Paralegals Goal (LTG) Strengthen the R knee and generally LE to stop pain post activity of climbing ladders & decrease pain getting off floor. LTG Duration 10/23/22 One Impairment Pt lacks appriopriate self care HEP. Short Term Goal (STG) Pt will be educated in use of modalities for pain management /inflammation. 08/31/22: Pt educated in use of ice (RICE) for pain management/inflammation. 08/31/22: Pt educated in RICE technique for pain/ inflammation management at home. STG Duration 08/28/22 (08/31/22: MET GOAL) Paralegals Goal (LTG) Pt will be independent in a self care HEP of R LE strengthening and hip flexibility ex's. 08/31/22: HEP: TBand ankle strengthening, Standing ankle PF & CKC knee strengthening of shallow squats, and step ups (front, side, lateral). 09/03/22: Ankle flexibility ex 's issued. 09/10/22: reviewed HEP: R LE: Slump Slider. L hip IR- piriformis & lateral hip stretch and R hip ER stretch. LTG Duration 10/23/22 progressed 09/10/22 Progress Towards Goals Progress Comments Function improving with lessening of R knee pain. LEFS score is 60 (20-39% impaired, score 48-62), was 44 , (40-59% impaired). Assessment Summary Assessment R knee probable LCL strain with LE neural tension in peroneal & Sciatic nerve. Slight lessening of R knee pain on stairs after peroneal n. glides. Pt is able to do n . glides with I/S due to fair adherence to doing home ex's. Physical Therapy Plan Frequency and Duration Frequency of Treatment 2x/Week Plan of Care Start Date 08/24/22 Plan of Care End Date 10/23/22 Next Visit Focus/Plan Next Note Type Treatment Note Next Visit Plan Next: Progress R knee stabilization and LE sciatic and peroneal n glides. Assess for need of femoral n glides. Start balance training and progress towards ladder climbing ability. Aerobic ex, gait & balance training. Modalities for inflammation/ pain: Ultrasound, ?ice EStim.
--- NOTE | 2022-10-02 13:20 | PT.OTN ---
Current Diagnoses Other chronic pain (10/02/22) Pain in right knee (10/02/22) Lumbago with sciatica, right side (10/02/22) Physical Therapy Treatment Note PT-OP-A Visit Information Start: 08/20/22 19:19 Freq: Status: Active Protocol: Document 10/02/22 12:36 LRN (Rec: 10/02/22 13:18 LRN [id number]) Out-Patient Physical Therapy Visit Information Visit Information Visit Type Treatment Note Visit Start Time 12:36 Visit Stop Time 13:14 Total Visit Minutes 38 Visit Number 6 Evaluation Information Evaluation Date 08/24/22 Precautions Precautions Pt reported history of R sciatic pain, R ankle fracture as a child, R knee pain after doing Reverse Mermaid move in yoga 4 yrs ago. PT-OP-B Current Condition Start: 08/20/22 19:19 Freq: Status: Active Protocol: Document 08/24/22 13:50 LRN (Rec: 08/24/22 14:42 LRN [id number]) Current Condition History of Current Condition Onset Date 4 yrs. 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 History of Current Condition Intermittent R knee pain. Past 4 yrs has been reinjuring it, Has been babying it. Climbing ladder makes it swell until she can't bend it. When the swelling goes down she can bend it again. Most recent onset a month ago climbed a ladder to get something off a shelf, felt a twinge and then swelling. Sometimes just standing up causes the pain. She had to stop exercising, so has gained weight. 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 Less pain today, so not limping. Sciatic nerve pain in the R LE side of leg to top of foot. Prior Treatments and Tests Cortisone injection 2 yrs ago (by Dr. Belcher) that eliminated the pain for 2 yrs. Massage therapy for R sciatic nerve pain. Developmental History Developmental History Hurt R knee during yoga, stretching (side sitting with R leg behind and pulled R foot up to side of trunk), felt knee pain that lasted a long time (4-5 months), then kept hurting it with swelling 3-4 weeks. Now has light injuries that the swelling lasts for 1 week. Sciatic pain started at the same time. After sitting for a long time gets R LE sciatic pain. Treatment Goals Patient/Caregiver Goals Pt goals: Strengthen the R knee to stop pain after activity (climbing ladders). 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 PT-OP-C Subjective Start: 08/20/22 19:19 Freq: Status: Active Protocol: Document 10/02/22 12:36 LRN (Rec: 10/02/22 13:18 LRN [id number]) OP-PT Subjective Patient Comments Patient Comments States she mowed her 1 acre lawn with a push mower and the R knee did not swell. Has not had much swelling in the knee. Hasn't felt the sciatic n pain, but felt it with the stretch (Piriformis) but did not linger. PT-OP-G Mobility & Gait Start: 08/20/22 19:19 Freq: Status: Active Protocol: Document 08/24/22 13:50 LRN (Rec: 08/24/22 14:42 LRN [id number]) OP Gait Assessment Gait Gait Assistance Required: Independent Comments Gait Comments Pt notes the R knee is not hurting as much today because she has been resting it, so not noticing a limp. PT-OP-H Neuro Start: 08/20/22 19:19 Freq: Status: Active Protocol: Document 08/24/22 13:50 LRN (Rec: 08/24/22 14:42 LRN [id number]) Sensation Evaluation Gross Sensation Gross Sensation WNL Deep Tendon Reflex & Clonus Assessment Deep Tendon Reflex Bilateral Achilles Deep Tendon Reflex 2+ Normal Bilateral Patellar Deep Tendon Reflex 1+ Diminished PT-OP-J Posture/Palpation/Skin Start: 08/20/22 19:19 Freq: Status: Active Protocol: Document 08/24/22 13:50 LRN (Rec: 08/24/22 14:42 LRN [id number]) Posture Evaluation Position Standing Head/C-Spine Posture Forward Head T-Spine Posture Flattened L-Spine Posture Increased Lordosis Knee Posture (L) Genu Valgus,(R) Genu Valgus Ankle/Foot Posture (L) Calcaneal Inversion Foot Arch (L) Medium Arch,(R) Medium Arch Palpation Assessment Location R knee Palpation Location Lateral joint line tenderness Palpation Findings Tenderness PT-OP-K Range of Motion Start: 08/20/22 19:19 Freq: Status: Active Protocol: Document 09/10/22 13:49 LRN (Rec: 09/10/22 14:32 LRN [id number]) Hip Goniometric Range of Motion Hip Right Passive Testing Position Supine Internal Rotation 35 External Rotation 50 Left Passive Testing Position Supine Internal Rotation 30 External Rotation 40 PT-OP-L Special Tests Start: 08/20/22 19:19 Freq: Status: Active Protocol: Document 08/24/22 13:50 LRN (Rec: 08/24/22 14:42 LRN [id number]) Special Tests Knee Special Tests Varus- 25 Degrees Test Results - right Valgus- 25 Degrees Test Results - right Patellar Grind Test Test Results - right Manny Test Test Results - right Apley's Compression Test Results - right Posterior Draw Test Results - right Anterior Draw Test Results - right Neural Special Tests- Lower Body Sciatic Nerve Tension Test Results - bilaterally. Comments Slump Test in sitting. PT-OP-M Strength Start: 08/20/22 19:19 Freq: Status: Active Protocol: Document 08/24/22 13:50 LRN (Rec: 08/24/22 14:42 LRN [id number]) Hip Strength Hip Manual Muscle Testing Right Comments Generally 5/5 Left Comments Generally 5/5 Knee Strength Knee Manual Muscle Testing Left Flexion (S2) 5 Normal Extension (L3) 5 Normal Right Flexion (S2) 5 Normal Extension (L3) 5 Normal Comments Medial and Lateral hamstrings are 5/5. Ankle/Foot Strength Ankle and Foot Manual Muscle Testing Right Comments All muscle groups 5/5 Left Comments All muscle groups 5/5 Toe Strength Toe Manual Muscle Testing Left Great Toe Extension 5 Normal Right Great Toe Flexion 5 Normal PT-OP-Q Treatments Start: 08/20/22 19:19 Freq: Status: Active Protocol: Document 10/02/22 12:36 LRN (Rec: 10/02/22 13:18 LRN [id number]) Cardio Equipment Bicycle (Upright) Duration (Minutes) 10 Resistance 6 (keeping rpm ~70) Seat Position 9 Other Extra time needed to get on/ off bicycle. Therapeutic Exercises Supine Exercises Peronal n stretch Supine Exercise Name Man assist Peronal n stretch: SLR>hip AD/IR>Ankle PF/IV Side bilateral Reps/Minutes Stretch R x 2, L x 1 Comments Extra time to determine max tolerated stretch L lateral stretch Supine Exercise Name L > R Lateral Hip Stretch Side left Reps/Minutes 15 SH, 2x L, 1x R L Piriformis stretch Supine Exercise Name L > R knee over ankle or pulling knee to opp shldr Side bilateral Reps/Minutes 15 SH , 2x L, 1x R Comments Extra time to determine max tolerated stretch R Fig 4 stretch Supine Exercise Name R fig 4 stretch Side right Reps/Minutes 1' Comments R side stiffer than L Prone Exercises Femoral n glide Prone Exercise Name Femoral n glide: Kick the head, head in neutral Side bilateral Reps/Minutes 10x each Comments Extra time for max stephenie positioning, determined best w /o head motions Sitting Exercises Sciatic n glide Sitting Exercise Name Slump Slider>Tensioner>Slider Side right Reps/Minutes 10x each Comments Kick head off>kick head>kick head off Standing Exercises Gastroc & Soleus stretch Standing Exercise Name Gastroc & Soleus stretch Side bilateral Reps/Minutes 60 SH x 1 L, 2x R Comments Cuing for positioning, extra time for review Self-Care/Home Management Treatment Education Patient Education Home Exercise Program Activities Self-Care/Home Management Activities Issued & reviewed HEP: Femoral n glide tensioner. PT-OP-T Assessment and Plan Start: 08/20/22 19:19 Freq: Status: Active Protocol: Document 10/02/22 12:36 LRN (Rec: 10/02/22 13:18 LRN [id number]) Physical Therapy Assessment Goals Three Impairment Decreased function Impairment LEFS score 44 (40-59% impaired , score 32-47) Short Term Goal (STG) Improve function with improved LEFS score of 48-62 (20-39% impaired). 09/17/22: LEFS score 60. STG Duration 09/23/22 (09/17/22: MET GOAL) Longterm Goal (LTG) Improve function with improved LEFS score of 63-79 (1-19% impaired) LTG Duration 10/23/22 Two Impairment Decreased strength due to R knee pain rated 3-7/10. Impairment Intermittent Sciatic pain rated 3-5/10. R knee MMT strength testing demonstrated no onset of knee pain. Short Term Goal (STG) Pt educated in proper sit/ stand posture. 08/31/22: Educated pt in proper standing posture. 09/03/22: Educated pt in proper sitting posture. STG Duration 09/04/22 (09/03/22: MET GOAL) Seamless Tube Roller Goal (LTG) Strengthen the R knee and generally LE to stop pain post activity of climbing ladders & decrease pain getting off floor. 10/02/22: Climbed ladder once and didn't have pain. LTG Duration 10/23/22 progressed 10/02/22. One Impairment Pt lacks appriopriate self care HEP. Short Term Goal (STG) Pt will be educated in use of modalities for pain management /inflammation. 08/31/22: Pt educated in use of ice (RICE) for pain management/inflammation. 08/31/22: Pt educated in RICE technique for pain/ inflammation management at home. STG Duration 08/28/22 (08/31/22: MET GOAL) Seamless Tube Roller Goal (LTG) Pt will be independent in a self care HEP of R LE strengthening and hip flexibility ex's. 08/31/22: HEP: TBand ankle strengthening, Standing ankle PF & CKC knee strengthening of shallow squats, and step ups (front, side, lateral). 09/03/22: Ankle flexibility ex 's issued. 09/10/22: reviewed HEP: R LE: Slump Slider. L hip IR- piriformis & lateral hip stretch and R hip ER stretch. LTG Duration 10/23/22 progressed 09/10/22 Assessment Summary Assessment No pain with exercise. Pt has tiny bit of stretch felt in anterior thigh with femoral n glide. Pt is moving slowly through the ex's, appears fatigued. Physical Therapy Plan Frequency and Duration Frequency of Treatment 2x/Week Plan of Care Start Date 08/24/22 Plan of Care End Date 10/23/22 Next Visit Focus/Plan Next Note Type Treatment Note Next Visit Plan Next: Check pt ability to do stairs at home. Review Femoral n glide for need to do as HEP. Start balance training and progress towards ladder climbing ability, gait & balance training. Cont R knee stabilization and LE sciatic and peroneal n glides. Modalities for inflammation/ pain: Ultrasound.
--- NOTE | 2022-10-05 17:36 | PT-OP ANOTE ---
Per phone conversation, pt was informed she has one visit coverage on her insurance and she has 2 visits scheduled, but last one is beyond her POC date. Discussed with patient her final visit date. Pt is choosing to come to therapy on 10/09/22 for final visit and assessment of her progress, with DC to self care program. Recommended pt check her ability on stairs/ladder as that was a goal to achieve. Pt agreeable and will come for final visit 10/09/22.
--- NOTE | 2022-10-09 10:21 | PT.OPDS ---
Current Diagnoses Other chronic pain (10/09/22) Pain in right knee (10/09/22) Lumbago with sciatica, right side (10/09/22) Visit Care Team Role Provider Type Peewee Belcher DO Attending Provider Physician Family Provider Primary Care Provider Referring Provider Specialty: Family Practice Address: [address] [place] [address], [phone] Email: Visit Number Visit Number 7 Discharge Summary PT-OP-B Current Condition Start: 08/20/22 19:19 Freq: Status: Active Protocol: Document 08/24/22 13:50 LRN (Rec: 08/24/22 14:42 LRN [id number]) Current Condition History of Current Condition Onset Date 4 yrs. 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 History of Current Condition Intermittent R knee pain. Past 4 yrs has been reinjuring it, Has been babying it. Climbing ladder makes it swell until she can't bend it. When the swelling goes down she can bend it again. Most recent onset a month ago climbed a ladder to get something off a shelf, felt a twinge and then swelling. Sometimes just standing up causes the pain. She had to stop exercising, so has gained weight. 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 Less pain today, so not limping. Sciatic nerve pain in the R LE side of leg to top of foot. Prior Treatments and Tests Cortisone injection 2 yrs ago (by Dr. Belcher) that eliminated the pain for 2 yrs. Massage therapy for R sciatic nerve pain. Developmental History Developmental History Hurt R knee during yoga, stretching (side sitting with R leg behind and pulled R foot up to side of trunk), felt knee pain that lasted a long time (4-5 months), then kept hurting it with swelling 3-4 weeks. Now has light injuries that the swelling lasts for 1 week. Sciatic pain started at the same time. After sitting for a long time gets R LE sciatic pain. Treatment Goals Patient/Caregiver Goals Pt goals: Strengthen the R knee to stop pain after activity (climbing ladders). 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 PT-OP-C Subjective Start: 08/20/22 19:19 Freq: Status: Active Protocol: Document 10/09/22 09:32 LRN (Rec: 10/09/22 10:20 LRN [id number]) OP-PT Subjective Patient Comments Patient Comments Able to go up/down ladderm, mowed lawn a lot, and go to stand from full squat without pain. Has swelling in R knee as normal. Patient Questionnaires Lower Extremity Functional Scale LEFS Score 69 LEFS Impairment 1 to 19% Impaired (Score 63-79 ) PT-OP-G Mobility & Gait Start: 08/20/22 19:19 Freq: Status: Active Protocol: Document 08/24/22 13:50 LRN (Rec: 08/24/22 14:42 LRN [id number]) OP Gait Assessment Gait Gait Assistance Required: Independent Comments Gait Comments Pt notes the R knee is not hurting as much today because she has been resting it, so not noticing a limp. PT-OP-H Neuro Start: 08/20/22 19:19 Freq: Status: Active Protocol: Document 08/24/22 13:50 LRN (Rec: 08/24/22 14:42 LRN [id number]) Sensation Evaluation Gross Sensation Gross Sensation WNL Deep Tendon Reflex & Clonus Assessment Deep Tendon Reflex Bilateral Achilles Deep Tendon Reflex 2+ Normal Bilateral Patellar Deep Tendon Reflex 1+ Diminished PT-OP-J Posture/Palpation/Skin Start: 08/20/22 19:19 Freq: Status: Active Protocol: Document 08/24/22 13:50 LRN (Rec: 08/24/22 14:42 LRN [id number]) Posture Evaluation Position Standing Head/C-Spine Posture Forward Head T-Spine Posture Flattened L-Spine Posture Increased Lordosis Knee Posture (L) Genu Valgus,(R) Genu Valgus Ankle/Foot Posture (L) Calcaneal Inversion Foot Arch (L) Medium Arch,(R) Medium Arch Palpation Assessment Location R knee Palpation Location Lateral joint line tenderness Palpation Findings Tenderness PT-OP-K Range of Motion Start: 08/20/22 19:19 Freq: Status: Active Protocol: Document 10/09/22 09:32 LRN (Rec: 10/09/22 10:20 LRN [id number]) Hip Goniometric Range of Motion Hip Right Passive Testing Position Supine Internal Rotation 45 External Rotation 45 Left Passive Testing Position Supine Internal Rotation 43 External Rotation 45 Ankle and Foot Goniometric Range of Motion Ankle and Foot Right Active Ankle/Foot ROM WFL Yes Testing Position Supine Dorsiflexion with Knee Extended 12 Plantarflexion 60 Left Active Ankle/Foot ROM WFL Yes Testing Position Supine Dorsiflexion with Knee Extended 12 Plantarflexion 60 PT-OP-L Special Tests Start: 08/20/22 19:19 Freq: Status: Active Protocol: Document 08/24/22 13:50 LRN (Rec: 08/24/22 14:42 LRN [id number]) Special Tests Knee Special Tests Varus- 25 Degrees Test Results - right Valgus- 25 Degrees Test Results - right Patellar Grind Test Test Results - right Manny Test Test Results - right Apley's Compression Test Results - right Posterior Draw Test Results - right Anterior Draw Test Results - right Neural Special Tests- Lower Body Sciatic Nerve Tension Test Results - bilaterally. Comments Slump Test in sitting. PT-OP-M Strength Start: 08/20/22 19:19 Freq: Status: Active Protocol: Document 08/24/22 13:50 LRN (Rec: 08/24/22 14:42 LRN [id number]) Hip Strength Hip Manual Muscle Testing Right Comments Generally 5/5 Left Comments Generally 5/5 Knee Strength Knee Manual Muscle Testing Left Flexion (S2) 5 Normal Extension (L3) 5 Normal Right Flexion (S2) 5 Normal Extension (L3) 5 Normal Comments Medial and Lateral hamstrings are 5/5. Ankle/Foot Strength Ankle and Foot Manual Muscle Testing Right Comments All muscle groups 5/5 Left Comments All muscle groups 5/5 Toe Strength Toe Manual Muscle Testing Left Great Toe Extension 5 Normal Right Great Toe Flexion 5 Normal PT-OP-T Assessment and Plan Start: 08/20/22 19:19 Freq: Status: Active Protocol: Document 10/09/22 09:32 LRN (Rec: 10/09/22 10:20 LRN [id number]) Physical Therapy Assessment Goals Three Impairment Decreased function Impairment LEFS score 44 (40-59% impaired , score 32-47) Short Term Goal (STG) Improve function with improved LEFS score of 48-62 (20-39% impaired). 09/17/22: LEFS score 60 (1 to 19% Impaired, score 63-79). STG Duration 09/23/22 (09/17/22: MET GOAL) Doctor Naturopathic Goal (LTG) Improve function with improved LEFS score of 63-79 (1-19% impaired). 10/09/22: LEFS score is 69 LTG Duration 10/23/22 (10/09/22: MET GOAL ) Two Impairment Decreased strength due to R knee pain rated 3-7/10. Impairment Intermittent Sciatic pain rated 3-5/10. R knee MMT strength testing demonstrated no onset of knee pain. Short Term Goal (STG) Pt educated in proper sit/ stand posture. 08/31/22: Educated pt in proper standing posture. 09/03/22: Educated pt in proper sitting posture. STG Duration 09/04/22 (09/03/22: MET GOAL) Penitentiary Goal (LTG) Strengthen the R knee and generally LE to stop pain post activity of climbing ladders & decrease pain getting off floor. 10/02/22: Climbed ladder once and didn't have pain. LTG Duration 10/23/22 (10/09/22: MET GOAL ) One Impairment Pt lacks appriopriate self care HEP. Short Term Goal (STG) Pt will be educated in use of modalities for pain management /inflammation. 08/31/22: Pt educated in use of ice (RICE) for pain management/inflammation. 08/31/22: Pt educated in RICE technique for pain/ inflammation management at home. STG Duration 08/28/22 (08/31/22: MET GOAL) Penitentiary Goal (LTG) Pt will be independent in a self care HEP of R LE strengthening and hip flexibility ex's. 08/31/22: HEP: TBand ankle strengthening, Standing ankle PF & CKC knee strengthening of shallow squats, and step ups (front, side, lateral). 09/03/22: Ankle flexibility ex 's issued. 09/10/22: reviewed HEP: R LE: Slump Slider. L hip IR- piriformis & lateral hip stretch and R hip ER stretch. 10/09/22: Reviewed HEP for appropriate ex's. LTG Duration 10/23/22 (10/09/22: MET GOAL) Assessment Summary Assessment Pt has met all her goals and is ready to be placed on an independent HEP. Pt is being discharged from therapy for completion of rehab program. Physical Therapy Plan Frequency and Duration Frequency of Treatment 2x/Week Plan of Care Start Date 08/24/22 Plan of Care End Date 10/23/22 Discharge Physical Therapy Discharge Reasons Goals Met Discharge Comments Thank you for your referral.
== END 2022-10-13 14:40 | disposition home or self-care (01) ==
LOC: PHYS 09:30
PROVIDERS: Family Provider Family Medicine; PCP Family Medicine; Referring Provider Family Medicine; Visit Provider Family Medicine
DX: M25.561 Pain in right knee (principal); G89.29 Other chronic pain; M54.41 Lumbago with sciatica, right side
CPT/HCPCS: 97110; 97162

== ENCOUNTER → 2023-07-22 11:32 | Outpatient (CLI) | payer OTHER, MEDICAID, SELFPAY ==
[2023-07-22 13:06] LABS: Influenza A - CEPHEID Flu A NEGATIVE (NEGATIVE); Influenza B - CEPHEID Flu B NEGATIVE (NEGATIVE); Respiratory Syncytial Virus Negative (Negative)
[2023-07-22 13:37] LABS: COVID-19 CEPHEID 4-PLEX PCR Negative (Negative)
== END ==
PROVIDERS: Family Provider Family Medicine; PCP Family Medicine; Visit Provider Nurse Practitioner Family
DX: R05.9 Cough, unspecified (principal)
CPT/HCPCS: 0241U

== ENCOUNTER → 2023-07-22 12:10 | Outpatient (CLI) | payer OTHER, MEDICAID, SELFPAY ==
--- NOTE | 2023-07-22 12:11 | DI.RAD.S_ITS ---
PROCEDURE: XR CHEST 2V INDICATIONS: Cough TECHNIQUE: 2 views of the chest were acquired. COMPARISON: None. FINDINGS: Surgical changes and devices: None. Lungs and pleura: Lungs are clear. No pleural effusions or pneumothorax. Mediastinum: Mediastinal contours are normal. Heart size is normal. Bones and chest wall: No suspicious bony abnormalities. Soft tissues appear unremarkable. IMPRESSION: No acute cardiopulmonary process. Dictated by: Orly Bland M.D. on 07/22/2023 at 17:19 Approved by: Orly Bland M.D. on 07/22/2023 at 17:20
== END ==
LOC: RAD 12:10
PROVIDERS: Family Provider Family Medicine; PCP Family Medicine; Referring Provider Nurse Practitioner Family; Visit Provider Nurse Practitioner Family
DX: R05.9 Cough, unspecified (principal)
CPT/HCPCS: 0241U; 71046

== ENCOUNTER 2023-10-24 17:17 | Emergency (ER) | payer OTHER, MEDICAID, SELFPAY ==
[2023-10-24 17:35] VITALS: BP 112/64; PULSE 96; RESP 20; TEMP 37.1; O2SAT 98; BMI 30.1
--- NOTE | 2023-10-24 17:41 | DI.RAD.S_ITS ---
PROCEDURE: XR CHEST 1V INDICATIONS: chest pain TECHNIQUE: One view of the chest was acquired. COMPARISON: [facility], CR, XR CHEST 2V, 07/22/2023, 12:22. FINDINGS: Surgical changes and devices: None. Lungs and pleura: Lungs are clear. No pleural effusions or pneumothorax. Mediastinum: Mediastinal contours appear normal. Heart size is normal. Bones and chest wall: No suspicious bony lesions. Overlying soft tissues appear unremarkable. IMPRESSION: No acute cardiopulmonary abnormality is seen. Dictated by: Tod Aguilar M.D. on 10/24/2023 at 17:39 Approved by: Tod Aguilar M.D. on 10/24/2023 at 17:40
[2023-10-24 18:02] LABS: Add Manual Diff / Slide Review NO; Basophils Absolute Auto 100 /uL (0-100); Basophils Percent Auto 0.9 % (0-2); Eosinophils Absolute Auto 100 /uL (0-450); Eosinophils Percent Auto 2.2 % (2-4); Hematocrit 39.8 % (36-46); Hemoglobin 13.9 g/dL (12.0-16.0); Lymphocytes Absolute Auto 1800 /uL (1100-4500); Lymphocytes Percent Auto 26.9 % (25-40); Mean Corpuscular Volume 91.3 fL (80-100); Monocytes Absolute Auto 600 /uL (0-900); Neutrophils Absolute Auto 4200 /uL (1500-7000); Platelet Count 210 X10^3/uL (150-400); Red Blood Cell Count 4.36 X10^6/uL (4.0-5.2); Red Cell Distribution Width 12.9 % (11.6-14.8); White Blood Cell Count 6.8 X10^3/uL (4.5-11.0)
[2023-10-24 18:06] LABS: Prothrombin Time 11.7 SECONDS (9.4-12.5)
[2023-10-24 18:09] LABS: PTT Partial Thromboplastin Tim 36 SECONDS (25.1-36.5)
[2023-10-24 18:11] LABS: Alanine Aminotransferase 20 IU/L (<35); Albumin 4.2 g/dL (3.5-5.0); Albumin Globulin Ratio 1.3 (1.0-2.8); Alkaline Phosphatase 50 U/L (38-126); Aspartate Aminotransferase 18 IU/L (14-36); BUN Creatinine Ratio 18.6 (6-22); Bilirubin Total 0.3 mg/dL (0.2-1.3); Blood Urea Nitrogen 13 mg/dL (7-17); Carbon Dioxide 24 mmol/L (22-32); Chloride 111 mmol/L (98-107); Creatine Kinase 68 U/L (30-135); Estimated Glomerular Filt Rate > 60 mL/min (>60); Globulin 3.2 g/dL (1.7-4.1); Glucose 114 mg/dL (70-100); HEMOLYSIS < 15 (0-50); Lipase 108 U/L (23-300); Magnesium 2.2 mg/dL (1.6-2.3); Sodium 139 mmol/L (137-145); Total Protein 7.4 g/dL (6.3-8.2)
[2023-10-24 18:22] LABS: Troponin I < 0.012 ng/mL (0.01-0.034)
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
[2023-10-24] MEDS: SODIUM CHLORIDE 0.9% 1,000 ML 1000 ML IV (19:09)
[2023-10-24 20:19] VITALS: BP 116/77; PULSE 66; O2SAT 100
== END 2023-10-24 20:05 | disposition home or self-care (01) ==
PROVIDERS: Emergency Medicine; Emergency Provider Emergency Medicine; Family Provider Family Medicine; PCP Family Medicine
DX: R55 Syncope and collapse (principal); S09.90XA Unspecified injury of head, initial encounter; R07.9 Chest pain, unspecified
CPT/HCPCS: 36415; 71045; 80053; 81003; 81025; 82550; 83690; 83735; 84484; 85025; 85610; 85730; 93005; 93010; 99284

== ENCOUNTER → 2023-12-03 12:59 | Outpatient (CLI) | payer OTHER, MEDICAID, SELFPAY ==
--- NOTE | 2023-12-03 13:00 | DI.RAD.S_ITS ---
PROCEDURE: XR CERVICAL SPINE 2V OR 3V INDICATIONS: chronic neck pain TECHNIQUE: 3 view(s) of the cervical spine were acquired. COMPARISON: None. FINDINGS: Bones: No fractures or dislocations to the T1 level. There is mild straightening of normal cervical lordosis. Mild degenerative endplate changes are noted at C5-6 level. The lateral masses of C1 appear intact on the odontoid view. No suspicious bony lesions. Soft tissues: No prevertebral soft tissue swelling. IMPRESSION: No cervical spine fracture or dislocation. Mild degenerative disc disease at C5-6 level. Dictated by: Fredi Fajardo M.D. on 12/03/2023 at 16:36 Approved by: Fredi Fajardo M.D. on 12/03/2023 at 16:37
== END ==
PROVIDERS: Family Provider Family Medicine; PCP Family Medicine; Referring Provider Family Medicine; Visit Provider Family Medicine
DX: M50.122 Cervical disc disorder at C5-C6 level with radiculopathy (principal); G89.29 Other chronic pain
CPT/HCPCS: 72040

== ENCOUNTER → 2024-09-13 09:46 | Outpatient (CLI) | payer OTHER, SELFPAY | LOC: CAR 09:47 | PROVIDERS: Family Provider Family Medicine; PCP Family Medicine; Referring Provider Family Medicine; Visit Provider Family Medicine | DX: R00.2 Palpitations (principal) | CPT/HCPCS: 93246 ==

== ENCOUNTER 2024-10-21 13:09 | Emergency (ER) | payer OTHER, SELFPAY ==
[2024-10-21 13:14] VITALS: BP 102/68; PULSE 93; RESP 18; TEMP 36.5; O2SAT 98; BMI 30.9
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
--- NOTE | 2024-10-21 14:07 | DI.CT.S_ITS ---
PROCEDURE: CT ABDOMEN PELVIS W CON INDICATIONS: abd pain/constipation TECHNIQUE: After the administration of intravenous contrast, axial sections acquired from the lung bases to the pubic symphysis. Coronal and sagittal reformats were performed. For radiation dose reduction, the following was used: automated exposure control, adjustment of mA and/or kV according to patient size. COMPARISON: None. FINDINGS: Image quality: Diagnostic. Lower Chest: No significant findings. ABDOMEN: Liver: No solid mass. Gallbladder: There is 1 calculus in the gallbladder. Biliary ducts: No biliary dilation. Pancreas: No ductal dilation. Spleen: Size is within normal limits. Adrenal Glands: No adrenal nodules. Kidneys and Ureters: No hydronephrosis. No solid mass. No complex renal cystic lesion which requires follow up. Stomach and Bowel: Normal colonic caliber, without significant wall thickening. The appendix is normal Peritoneum: No abnormal intraperitoneal fluid. No free air. Ventral Wall: No significant ventral hernia. Abdominal Nodes: No retroperitoneal or mesenteric adenopathy by size criteria. Vessels: Aorta and inferior vena cava are normal in size. PELVIS: Pelvic Organs: Unremarkable. Bladder: No bladder wall thickening, accounting for underdistention. Pelvic Nodes: No enlarged lymph nodes. Miscellaneous: No inguinal hernias are seen. Bones: No aggressive osseous abnormality. IMPRESSION: 1. No acute intra-abdominal abnormality seen. 2. Cholelithiasis. Dictated by: Marquise Moya M.D. on 10/21/2024 at 14:48 Approved by: Marquise Moya M.D. on 10/21/2024 at 14:52
[2024-10-21 14:35] LABS: Add Manual Diff / Slide Review NO; Basophils Absolute Auto 100 /uL (0-100); Eosinophils Absolute Auto 100 /uL (0-450); Hematocrit 39.9 % (36-46); Hemoglobin 13.9 g/dL (12.0-16.0); Lymphocytes Absolute Auto 1200 /uL (1100-4500); Lymphocytes Percent Auto 19.3 % (25-40); Mean Corpuscular HGB Conc 34.8 % (30-36); Mean Corpuscular Hemoglobin 31.9 PG (26-34); Mean Corpuscular Volume 91.6 fL (80-100); Monocytes Absolute Auto 500 /uL (0-900); Monocytes Percent Auto 8.7 % (3-14); Neutrophils Absolute Auto 4300 /uL (1500-7000); Platelet Count 211 X10^3/uL (150-400); Red Blood Cell Count 4.35 X10^6/uL (4.0-5.2); White Blood Cell Count 6.1 X10^3/uL (4.5-11.0)
[2024-10-21 14:46] LABS: Alanine Aminotransferase 48 IU/L (<35); Albumin 4.3 g/dL (3.5-5.0); Albumin Globulin Ratio 1.2 (1.0-2.8); Alkaline Phosphatase 48 U/L (38-126); Aspartate Aminotransferase 37 IU/L (14-36); BUN Creatinine Ratio 19.4 (6-22); Bilirubin Total 0.7 mg/dL (0.2-1.3); Blood Urea Nitrogen 13 mg/dL (7-17); Calcium 9.3 mg/dL (8.4-10.2); Carbon Dioxide 23 mmol/L (22-32); Chloride 107 mmol/L (98-107); Estimated Glomerular Filt Rate > 60 mL/min (>60); Globulin 3.5 g/dL (1.7-4.1); Glucose 88 mg/dL (70-99); HEMOLYSIS 42 (0-50); Lipase 95 U/L (23-300); Sodium 138 mmol/L (137-145); Total Protein 7.8 g/dL (6.3-8.2)
[2024-10-21 15:51] VITALS: O2SAT 99
[2024-10-21 15:52] VITALS: BP 108/63; O2SAT 98
== END 2024-10-21 16:00 | disposition home or self-care (01) ==
PROVIDERS: Emergency Provider Family Medicine; Family Provider Family Medicine; PCP Family Medicine
DX: K59.01 Slow transit constipation (principal); K80.20 Calculus of gallbladder without cholecystitis without obstruction
CPT/HCPCS: 36415; 74177; 80053; 81003; 83690; 85025; 99283; 99284; Q9967